=== PATIENT | female | born 2000 | race African-American/Black ===

== ENCOUNTER 2019-05-18 09:20 | Emergency (ER) | payer BC, MEDICAID ==
[2019-05-18 09:42] VITALS: BP 129/68
--- NOTE | 2019-05-18 09:49 | ER Document Report ---
ED Medical Screen (RME) - General Chief Complaint: Vaginal Discharge Stated Complaint: VAGINAL DISCOMFORT Time Seen by Provider: 05/18/19 09:47 Primary Care Provider: DAVID GORDON MD [Primary Care Provider] - Follow up as needed Mode of Arrival: Ambulatory Information source: Patient Notes: 18-year-old female presented to ED for complaint of burning itching to the vagina. She states she has a spot on her left shoulder that she also would like looked at. This is not an abscess it is some type of a mole. She states she is not sexually active and has had yeast infections in the past but this 1 has burning and itching and has a fishy smell to it. She states her last menstrual period was April 23. She denies smoking drinking or doing any drugs. She is a lert oriented respirations regular and unlabored speaking in full sentences walks with even steady gait. I have greeted and performed a rapid initial assessment of this patient. A comprehensive ED assessment and evaluation of the patient, analysis of test results and completion of medical decision making process will be conducted by an additional ED providers. Dictation of this chart was performed using voice recognition software; therefore, there may be some unintended grammatical errors. TRAVEL OUTSIDE OF THE [place] IN LAST 30 DAYS: No - Related Data Allergies/Adverse Reactions: No Known Allergies Allergy (Verified 05/18/19 09:44) Physical Exam - Vital signs Vitals: Temp Pulse Resp BP Pulse Ox 98.6 F 70 16 129/68 H 100 05/18/19 09:41 05/18/19 09:41 05/18/19 09:41 05/18/19 09:41 05/18/19 09:41 Course - Vital Signs Vital signs: Temp Pulse Resp BP Pulse Ox 98.6 F 70 16 129/68 H 100 05/18/19 09:41 05/18/19 09:41 05/18/19 09:41 05/18/19 09:41 05/18/19 09:41 Doctor's Discharge - Discharge Referrals: DAVID GORDON MD [Primary Care Provider] - Follow up as needed
[2019-05-18 10:59] LABS: APPEARANCE,URINE CLEAR; BILIRUBIN,URINE NEGATIVE (NEGATIVE); COLOR,URINE YELLOW; GLUCOSE, URINE NEGATIVE (NEGATIVE); KETONES,URINE NEGATIVE (NEGATIVE); LEUKOCYTE ESTERASE,URINE NEGATIVE (NEGATIVE); NITRITE,URINE NEGATIVE (NEGATIVE); PROTEIN,URINE NEGATIVE (NEGATIVE); URINE SPECIFIC GRAVITY 1.024; UROBILINOGEN,URINE NEGATIVE mg/dL (<2.0)
[2019-05-18 12:28] LABS: CHLAM PCR NOT DETECTED (NOT DETECT)
== END 2019-05-18 17:35 | disposition left against medical advice (07) ==
LOC: ER 09:20
DX: L50.9 Urticaria, unspecified (principal); N89.8 Other specified noninflammatory disorders of vagina; Z53.20 Procedure and treatment not carried out because of patient's decision for unspecified reasons
CPT/HCPCS: 81001; 81025; 87491; 87591; 99281

== ENCOUNTER 2019-05-20 18:46 | Emergency (ER) | payer BC ==
[2019-05-20] MEDS ORDERED: METRONIDAZOLE 500 MG TABLET PO ONE (22:52)
--- NOTE | 2019-05-20 22:54 | ER Document Report ---
HPI - HPI Time Seen by Provider: 05/20/19 22:46 Pain Level: Denies Context: Patient is a 18-year-old female that comes to the emergency department for chief complaint of whitish clumpy vaginal discharge and vaginal irritation. She states she was here for this about a day ago, she states she had a leave for work reasons, she states that her symptoms are persisting and she returns for treatment. She denies abdominal pain, flank pain, dysuria, vaginal bleeding, fever/chills, nausea/vomiting. She denies any other complaints, she denies any daily medications or past medical history. - REPRODUCTIVE Reproductive: DENIES: : Past Medical History - General Information source: Patient - Social History Smoking Status: Never Smoker Frequency of alcohol use: None Drug Abuse: None Lives with: Family Family History: Reviewed & Not Pertinent - Medical History Medical History: Negative Renal/ Medical History: Denies: Hx Peritoneal Dialysis Surgical Hx: Negative - Immunizations Immunizations up to date: Yes Hx Diphtheria, Pertussis, Tetanus Vaccination: Yes Vertical Provider Document - CONSTITUTIONAL General Appearance: WD/WN, No Apparent Distress - INFECTION CONTROL TRAVEL OUTSIDE OF THE [place] IN LAST 30 DAYS: No - HEENT HEENT: Atraumatic, Normal ENT Exam, Normocephalic - NECK Neck: Normal Inspection - RESPIRATORY Respiratory: Breath Sounds Normal, No Respiratory Distress - CARDIOVASCULAR Cardiovascular: Regular Rate, Regular Rhythm - GI/ABDOMEN Gastrointestinal: Abdomen Soft, Abdomen Non-Tender. negative: Abdomen Tender, Abdominal Guarding - BACK Back: Normal Inspection - MUSCULOSKELETAL/EXTREMETIES Musculoskeletal/Extremeties: MAEW, FROM, Non-Tender - NEURO Level of Consciousness: Awake, Alert, Appropriate Motor/Sensory: No Motor Deficit, No Sensory Deficit - DERM Integumentary: Warm, Dry, No Rash Course - Re-evaluation Re-evalutation: Review shows that patient just had a negative urinalysis, negative test, negative gonorrhea and Chlamydia testing. Her reported symptoms are consistent with bacterial vaginosis. I did offer a pelvic exam but this was declined, I feel this is appropriate based on her previously negative work-up, lack of symptoms, benign evaluation. Patient will be treated with Flagyl, discussed expectations, follow-up, and return precautions. Patient states u nderstanding and agreement. - Vital Signs Vital signs: Temp Pulse Resp BP Pulse Ox 98.1 F 117 H 18 149/98 H 95 07/26/19 19:12 05/20/19 19:12 05/20/19 19:12 05/20/19 19:12 05/20/19 19:12 Discharge - Discharge Clinical Impression: Vaginal discharge Condition: Stable Disposition: HOME, SELF-CARE Additional Instructions: Your previous test was negative, your urine was clean, your gonorrhea and Chlamydia testing were negative. Your evaluation is most consistent with bacterial vaginosis, take the Flagyl as prescribed, this should resolve. If this keeps happening please follow-up with [facility], otherwise follow-up routinely with primary care. Return to emergency department for any concerning symptoms including developing pain, fever/chills, nausea/vomiting, or any other concerning symptoms. Prescriptions: Metronidazole [Flagyl 500 mg Tablet] 500 mg PO BID 7 Days #14 tablet
[2019-05-20 22:59] VITALS: BP 143/75
== END 2019-05-20 22:59 | disposition home or self-care (01) ==
LOC: ER 18:46
DX: N89.8 Other specified noninflammatory disorders of vagina (principal)
CPT/HCPCS: 99283

== ENCOUNTER 2019-06-16 17:56 | Emergency (ER) | payer BC ==
--- NOTE | 2019-06-16 18:34 | ER Document Report ---
HPI - HPI Time Seen by Provider: 06/16/19 18:33 Pain Level: 0 Notes: 18-year-old female presents the ED for evaluation of left thumb and left upper thigh pain after she accidentally poured hot water on her prior to arrival to the emergency room. Patient states she was using a canvas that she is for menstrual cramping, filled with hot water and the Was not tight enough and poured onto her thigh and left thumb. Has not tried any qldu-muf-xaabowf medications. Pain is 6 out of 10, throbbing aching. No fevers or chills. No peeling of his skin, no blistering noted. No nausea vomiting or diarrhea, no numbness or tingling bilateral upper or lower extremities. - REPRODUCTIVE Reproductive: DENIES: : Past Medical History - General Information source: Patient, Parent - Social History Smoking Status: Never Smoker Family History: Reviewed & Not Pertinent Renal/ Medical History: Denies: Hx Peritoneal Dialysis - Immunizations Immunizations up to date: Yes Hx Diphtheria, Pertussis, Tetanus Vaccination: Yes Vertical Provider Document - CONSTITUTIONAL Agree With Documented VS: Yes General Appearance: WD/WN Notes: PHYSICAL EXAMINATION: GENERAL: Well-appearing, well-nourished and in no acute distress. HEAD: Atraumatic, normocephalic. EYES: Pupils equal round and reactive to light, extraocular movements intact, conjunctiva are normal. ENT: Nares patent, oropharynx clear without exudates. Moist mucous membranes. NECK: Normal range of motion, supple without lymphadenopathy LUNGS: Breath sounds clear to auscultation bilaterally and equal. No wheezes rales or rhonchi. HEART: Regular rate and rhythm without murmurs ABDOMEN: Soft, nontender, nondistended abdomen. No guarding, no rebound. No masses appreciated. Female : deferred Musculoskeletal: Normal range of motion, no pitting or edema. No cyanosis. NEUROLOGICAL: Cranial nerves grossly intact. Normal speech, normal gait. Normal sensory, motor exams PSYCH: Normal mood, normal affect. SKIN: Warm, Dry, normal turgor, no rashes or lesions noted. Superficial partial-thickness burn to left upper thigh approximately 4 cm x 5 cm, no blistering, open wounds or drainage. Superficial partial-thickness burn to left thumb on dorsal aspect approximately 0.5 cm x 0.5cm, open wounds or drainage, no blistering. - INFECTION CONTROL TRAVEL OUTSIDE OF THE [place] IN LAST 30 DAYS: No Course - Re-evaluation Re-evalutation: 06/16/19 19:53 Vital stable, no distress, afebrile. Nurse's notes reviewed. Patient is tetanus is up-to-date patient has a superficial partial-thickness burn to left thigh left thumb, discussed with patient that she can apply aloe vera, will give patient lidocaine cream to put on. She can apply xvxs-riz-giahotl bacitracin bid prn, no need for Silvadene due to the fact there is no open wound, this is a superficial partial-thickness burn advised to follow-up with primary care provider within the next 24 to 48 hours. After performing a Medical Screening Examination, I estimate there is LOW risk for OPEN FRACTURE, COMPARTMENT SYNDROME, TENDON RUPTURE, ACUTE NEUROVASCULAR INJURY, or RETAINED FOREIGN BODY, thus I consider the discharge disposition reasonable. Also, there is no evidence or peritonitis, sepsis, or toxicity. I have reevaluated this patient multiple times and no significant life threatening changes are noted. The patient and I have discussed the diagnosis and risks, and we agree with discharging home with close follow-up with the understanding that symptoms and presentations can change. We also discussed returning to the Emergency Department immediately if new or worsening symptoms occur. We have discussed the symptoms which are most concerning (e.g., changing or worsening pain, fever, numbness, weakness, cool or painful digits) that necessitate immediate return. - Vital Signs Vital signs: Temp Pulse Resp BP Pulse Ox 97.8 F 75 14 141/69 H 98 06/16/19 18:00 06/16/19 18:00 06/16/19 18:00 06/16/19 18:00 06/16/19 18:00 Discharge - Discharge Clinical Impression: superficial partial thickness burn Condition: Stable Disposition: HOME, SELF-CARE Instructions: [facility] (OM), Soap Cleansing ([facility]) Additional Instructions: Apply lidocaine gel to area every 4 hours as needed for pain control. Wash with soap and water twice a day. Apply triple antibiotic ointment if you notice any redness, drainage or warmth to touch. Follow-up with primary care provider for wound reevaluation within 2 days. Take yutu-kjm-bjnlxow ibuprofen and Tylenol as needed for pain control. Return immediately for any new or worsening symptoms. Follow up with primary care provider, call tomorrow to make followup appointment. Prescriptions: Lidocaine HCl [Lidocaine Plus] 1 applic TP Q4HP PRN #120 cream..g. PRN Reason: Forms: Return to Work, Parent Work Note Referrals: PARMINDER WILSON MD [ACTIVE STAFF] - Follow up as needed
[2019-06-16] MEDS ORDERED: IBUPROFEN 800 MG TABLET PO ONE (19:25)
[2019-06-16 19:48] VITALS: BP 107/62
== END 2019-06-16 19:49 | disposition home or self-care (01) ==
LOC: ER 17:56
DX: T23.112A Burn of first degree of left thumb (nail), initial encounter (principal); T24.112A Burn of first degree of left thigh, initial encounter; X12.XXXA Contact with other hot fluids, initial encounter; Y93.89 Activity, other specified; Y92.009 Unspecified place in unspecified non-institutional (private) residence as the place of occurrence of the external cause

== ENCOUNTER 2019-10-06 15:52 | Emergency (ER) | payer BC ==
--- NOTE | 2019-10-06 16:12 | ER Document Report ---
ED Medical Screen (RME) - General Chief Complaint: Abdominal Pain Stated Complaint: ABDOMINAL PAIN Time Seen by Provider: 10/06/19 16:07 TRAVEL OUTSIDE OF THE [place] IN LAST 30 DAYS: No - HPI Notes: 10/06/19 16:11 Patient is a 19-year-old female no significant past medical history presents complaining of epigastric and right upper quadrant abdominal pain for the past few weeks. The pain does not radiate. Positions will make the pain worse. She has not noticed any changes with p.o. intake. She is urinating normally and having normal bowel movements. Denies drug allergies. No surgical history to her abdomen. No fever or recent illness. No chest pain, shortness of breath, vomiting, diarrhea. No dysuria. I have treated and performed a rapid initial assessment of this patient. A comprehensive ED assessment and evaluation of the patient, analysis of test results and completion of medical decision making process will be conducted by additional ED providers. PHYSICAL EXAMINATION: GENERAL: Well-appearing, well-nourished and in no acute distress. A&Ox4. Answers questions appropriately. Abdomen: Limited exam in triage, but patient does have tenderness to the epigastrium and right upper quadrant to palpation. Abdomen is otherwise soft. - Related Data Allergies/Adverse Reactions: No Known Allergies Allergy (Verified 10/06/19 16:02) Past Medical History - Social History Chew tobacco use (# tins/day): No Frequency of alcohol use: None Drug Abuse: None Renal/ Medical History: Denies: Hx Peritoneal Dialysis - Immunizations Immunizations up to date: Yes Hx Diphtheria, Pertussis, Tetanus Vaccination: Yes Physical Exam - Vital signs Vitals: Temp Pulse Resp BP Pulse Ox 98.1 F 57 L 14 122/65 100 10/06/19 16:02 10/06/19 16:02 10/06/19 16:02 10/06/19 16:02 10/06/19 16:02 Course - Vital Signs Vital signs: Temp Pulse Resp BP Pulse Ox 98.1 F 57 L 14 122/65 100 10/06/19 16:02 10/06/19 16:02 10/06/19 16:02 10/06/19 16:02 10/06/19 16:02
[2019-10-06 16:39] LABS: ABSOLUTE BASOPHILS # (AUTO) 0.1 10^3/uL (0.0-0.2); ABSOLUTE LYMPHOCYTES (AUTO) 2.1 10^3/uL (0.5-4.7); ABSOLUTE MONOCYTES (AUTO) 0.5 10^3/uL (0.1-1.4); ABSOLUTE NEUT (AUTO) 3.9 10^3/uL (1.7-8.2); APPEARANCE,URINE SLIGHTLY-CLOUDY; BILIRUBIN,URINE NEGATIVE (NEGATIVE); COLOR,URINE YELLOW; EOSINOPHILS % (AUTO) 0.4 % (0-6); GLUCOSE, URINE NEGATIVE (NEGATIVE); HEMATOCRIT 44.7 % (36.0-47.0); HEMOGLOBIN 15.1 g/dL (12.0-15.5); KETONES,URINE NEGATIVE (NEGATIVE); LYMPHOCYTES % (AUTO) 31.6 % (13-45); MEAN CORPUSCULAR HEMOGLOBIN 29.9 pg (27.0-33.4); MEAN CORPUSCULAR HGB CONC 33.7 g/dL (32.0-36.0); MEAN CORPUSCULAR VOLUME 89 fl (80-97); PLATELET COUNT 348 10^3/uL (150-450); PROTEIN,URINE NEGATIVE (NEGATIVE); RED BLOOD COUNT 5.03 10^6/uL (3.72-5.28); RED CELL DISTRIBUTION WIDTH 12.7 % (11.5-14.0); TOTAL CELLS COUNTED % (AUTO) 100 %; URINE SPECIFIC GRAVITY 1.014; WHITE BLOOD COUNT 6.6 10^3/uL (4.0-10.5)
[2019-10-06 16:51] LABS: ALBUMIN 4.8 g/dL (3.5-5.0); ALKALINE PHOSPHATASE 68 U/L (38-126); ANION GAP 13 (5-19); ASPARTATE AMINO TRANSFERASE 16 U/L (14-36); BILIRUBIN,DIRECT 0.2 mg/dL (0.0-0.4); BILIRUBIN,TOTAL 0.4 mg/dL (0.2-1.3); BLOOD UREA NITROGEN 12 mg/dL (7-20); CARBON DIOXIDE 28 mmol/L (22-30); CHLORIDE 101 mmol/L (98-107); GLUCOSE 94 mg/dL (75-110); TOTAL PROTEIN 8.2 g/dL (6.3-8.2)
--- NOTE | 2019-10-06 17:23 | RADIOLOGY REPORT (SQ) ---
EXAM DESCRIPTION: U/S ABDOMEN LIMITED W/O DOP COMPLETED DATE/TIME: 10/06/2019 5:14 pm REASON FOR STUDY: RUQ/epigastric pain COMPARISON: None. TECHNIQUE: Dynamic and static grayscale images acquired of the abdomen and recorded on PACS. Additio nal selected color Doppler and spectral images recorded. LIMITATIONS: None. FINDINGS: PANCREAS: Obscured LIVER: No masses. Echotexture normal. LIVER VASCULATURE: Normal directional flow of the main portal vein and hepatic veins. GALLBLADDER: No stones. Normal wall thickness. No pericholecystic fluid. ULTRASOUND-DETECTED LANDRUM'S SIGN: Negative. INTRAHEPATIC DUCTS AND COMMON DUCT: CBD and intrahepatic ducts normal caliber. No filling defects. INFERIOR VENA CAVA: Normal flow. AORTA: No aneurysm. RIGHT KIDNEY: Normal size. Normal echogenicity. No solid or suspicious masses. No hydronephrosis. No calcifications. PERITONEAL AND RIGHT PLEURAL SPACE: No ascites or effusions. OTHER: No other significant findings. IMPRESSION: NORMAL RIGHT UPPER QUADRANT ULTRASOUND. TECHNICAL DOCUMENTATION: JOB ID: [id number] [email or web address]- All Rights Reserved Reading location - IP/workstation name: [email or web address]
[2019-10-06 17:50] VITALS: BP 150/84
--- NOTE | 2019-10-06 17:51 | ER Document Report ---
ED GI/ - General Chief Complaint: Abdominal Pain Stated Complaint: ABDOMINAL PAIN Time Seen by Provider: 10/06/19 16:07 Primary Care Provider: [facility] [Provider Group] - Follow up as needed [facility] [Provider Group] - Follow up as needed [facility] [Provider Group] - Follow up as needed [facility] [Provider Group] - Follow up as needed [facility] [Provider Group] - Follow up as needed [facility] [Provider Group] - Follow up as needed LUCIANA COTE MD [ACTIVE STAFF] - Follow up as needed STEPHEN MERIDA MD [ACTIVE STAFF] - Follow up as needed TRAVEL OUTSIDE OF THE [place] IN LAST 30 DAYS: No - Related Data Allergies/Adverse Reactions: No Known Allergies Allergy (Verified 10/06/19 16:02) Past Medical History - Social History Smoking Status: Never Smoker Chew tobacco use (# tins/day): No Frequency of alcohol use: None Drug Abuse: None Lives with: Family Family History: Reviewed & Not Pertinent Patient has suicidal ideation: No Patient has homicidal ideation: No - Past Medical History Cardiac Medical History: Reports: None Pulmonary Medical History: Reports: None EENT Medical History: Reports: None Neurological Medical History: Reports: None Endocrine Medical History: Reports: None Renal/ Medical History: Reports: None Malignancy Medical History: Reports: None GI Medical History: Reports: None Musculoskeletal Medical History: Reports None Skin Medical History: Reports None Psychiatric Medical History: Reports: None Traumatic Medical History: Reports: None Infectious Medical History: Reports: None Surgical Hx: Negative Past Surgical History: Reports: None - Immunizations Immunizations up to date: Yes Hx Diphtheria, Pertussis, Tetanus Vaccination: Yes Review of Systems - Review of Systems Constitutional: No symptoms reported EENT: No symptoms reported Cardiovascular: No symptoms reported Respiratory: No symptoms reported Gastrointestinal: Abdominal pain. denies: Nausea, Vomiting Genitourinary: No symptoms reported Female Genitourinary: No symptoms reported Musculoskeletal: No symptoms reported Skin: No symptoms reported Hematologic/Lymphatic: No symptoms reported Neurological/Psychological: No symptoms reported Physical Exam - Vital signs Vitals: Temp Pulse Resp BP Pulse Ox 98.1 F 57 L 14 122/65 100 10/06/19 16:02 10/06/19 16:02 10/06/19 16:02 10/06/19 16:02 10/06/19 16:02 Interpretation: Normal - General General appearance: Appears well, Alert - HEENT Head: Normocephalic, Atraumatic Eyes: Normal Pupils: PERRL - Respiratory Respiratory status: No respiratory distress Chest status: Nontender Breath sounds: Normal Chest palpation: Normal - Cardiovascular Rhythm: Regular Heart sounds: Normal auscultation Murmur: No - Abdominal Inspection: Normal Distension: No distension Bowel sounds: Normal Tenderness: Tender - Generalized. No: McBurney's point, Leal's sign, Guarding Organomegaly: No organomegaly - Back Back: Normal, Nontender - Extremities General upper extremity: Normal inspection, Nontender, Normal color, Normal ROM, Normal temperature General lower extremity: Normal inspection, Nontender, Normal color, Normal ROM, Normal temperature, Normal weight bearing. No: Stephania's sign - Neurological Neuro grossly intact: Yes Cognition: Normal Orientation: AAOx4 Madhavi Coma Scale Eye Opening: Spontaneous Cut Off Coma Scale Verbal: Oriented Cut Off Coma Scale Motor: Obeys Commands Cut Off Coma Scale Total: 15 Speech: Normal Motor strength normal: LUE, RUE, LLE, RLE Sensory: Normal - Psychological Associated symptoms: Normal affect, Normal mood - Skin Skin Temperature: Warm Skin Moisture: Dry Skin Color: Normal Course - Re-evaluation Re-evalutation: 10/06/19 17:53 Discussed labs and ultrasound with patient and written report of labs and ultrasound given to patient for discharge. Patient was instructed to follow-up with primary care and or gastroenterology. - Vital Signs Vital signs: Temp Pulse Resp BP Pulse Ox 98.4 F 71 18 150/84 H 100 10/06/19 18:03 10/06/19 18:03 10/06/19 18:03 10/06/19 18:03 10/06/19 18:03 - Laboratory Result Diagrams: 10/06/19 16:13 10/06/19 16:13 Laboratory results interpreted by me: 10/06/19 16:13 Urine Urobilinogen 4.0 H - Diagnostic Test Radiology reviewed: Image reviewed, Reports reviewed Discharge - Discharge Clinical Impression: Abdominal pain Qualifiers: Abdominal location: generalized Qualified Code(s): R10.84 - Generalized abdominal pain Condition: Stable Disposition: HOME, SELF-CARE Additional Instructions: ABDOMINAL PAIN: There are many causes of abdominal pain. Pain can mean a serious problem requiring surgery (such as appendicitis). It can also be an innocent problem that goes away on its own (such as a viral infection). Often, time must pass to determine the cause of pain. The physician does not feel that hospitalization is necessary, at present. Things may change within the next 24 hours. Call the doctor or come back for re- examination if any problems occur, such as: (1) Pain that becomes more severe, steady, or becomes concentrated in one specific area. Also, pain that is more severe with movement or coughing. (2) Vomiting that persists or becomes more frequent. (3) Blood in the vomitus, urine, or bowel movements. Blood in the stool may have a tarry or black appearance. (4) Shaking chills or fever greater than 100 degrees F. (5) The abdomen becomes more distended or swollen. (6) Bowel movements cease. (7) Failure to improve as expected. NORMAL EXAM AND WORKUP: At this time, your examination and workup show no significant abnormality. No significant abnormal physical findings are noted. All laboratory, EKG, and imaging (x-ray, CT scans, ultrasound) studies that were ordered show no significant abnormality. Although your examination and all studies that were ordered showed no significant abnormal finding, there are no examinations and no studies that are 100% accurate. There is always the possibility that some abnormality could exist and not be detected with physical examination or within the limits and capabilities of laboratory and other studies. You should return or follow up as you were instructed on your visit today for further evaluation if your symptoms do not resolve. ANTINAUSEA MEDICATION: You have been given a medication to suppress nausea and vomiting. This type of medication can be given as a shot, pill, or suppository. It will usually last for many hours. Pills and shots usually last six to eight hours, suppositories last about 12 hours. For the typical illness, only one or two doses of the medication may be necessary. Mild lightheadedness may occur. This type of medicine can cause drowsiness. Do not drive or operate dangerous machinery while under its influence. Do not mix with alcohol. See your doctor at once if you have muscle spasms or tightness, or unco ntrollable motions (particularly of the neck, mouth, or jaw). Persistent vomiting or severe lightheadedness should also be evaluated by the physician. Have discussed your labs and ultrasound results with you and have shown you the results on the computer. I will give you a copy this to take to your primary care and a director of recruiting. FOLLOW-UP CARE: If you have been referred to a physician for follow-up care, call the physicians office for an appointment as you were instructed or within the next two days. If you experience worsening or a significant change in your symptoms, notify the physician immediately or return to the Emergency Department at any time for re-evaluation. Referrals: [facility] [Provider Group] - Follow up as needed [facility] [Provider Group] - Follow up as needed [facility] [Provider Group] - Follow up as needed [facility] [Provider Group] - Follow up as needed [facility] [Provider Group] - Follow up as needed [facility] [Provider Group] - Follow up as needed STEPHEN MERIDA MD [ACTIVE STAFF] - Follow up as needed LUCIANA COTE MD [ACTIVE STAFF] - Follow up as needed
== END 2019-10-06 18:03 | disposition home or self-care (01) ==
LOC: ER 15:52
DX: R10.84 Generalized abdominal pain (principal); R10.817 Generalized abdominal tenderness
CPT/HCPCS: 36415; 76705; 80053; 81001; 81025; 83690; 85025; 99284

== ENCOUNTER 2020-06-18 04:12 | Inpatient (IN) | payer MEDICAID ==
[2020-06-18] MEDS ORDERED: RINGERS SOLUTION,LACTATED 1,000 ML IV ONE (04:41)
[2020-06-18] MEDS ORDERED: RINGERS SOLUTION,LACTATED 1,000 ML IV PRN (04:41)
[2020-06-18] MEDS ORDERED: OXYTOCIN 10 UNIT/ML VIAL ONE (05:03)
[2020-06-18] MEDS ORDERED: OXYTOCIN/0.9 % SODIUM CHLORIDE 30 UNIT/500 ML RTUINJ ONE (05:03)
[2020-06-18] MEDS ORDERED: MISOPROSTOL 0.2 MG TABLET ONE (05:03)
[2020-06-18] MEDS ORDERED: LIDOCAINE 1% INJ-PF (10 MG/ML) 30 ML SDV ONE (05:03)
[2020-06-18 05:22] LABS: APPEARANCE,URINE SLIGHTLY-CLOUDY; BILIRUBIN,URINE NEGATIVE (NEGATIVE); COLOR,URINE YELLOW; GLUCOSE, URINE NEGATIVE (NEGATIVE); KETONES,URINE NEGATIVE (NEGATIVE); LEUKOCYTE ESTERASE,URINE MODERATE (NEGATIVE); NITRITE,URINE NEGATIVE (NEGATIVE); PROTEIN,URINE 100 mg/dL (NEGATIVE); URINE SPECIFIC GRAVITY 1.008; UROBILINOGEN,URINE NEGATIVE mg/dL (<2.0)
[2020-06-18 05:49] LABS: URINE AMPHETAMINES SCREEN NEGATIVE; URINE BARBITURATES SCREEN NEGATIVE; URINE BENZODIAZEPINES SCREEN NEGATIVE; URINE COCAINE SCREEN NEGATIVE; URINE MARIJUANA (THC) SCREEN NEGATIVE; URINE METHADONE SCREEN NEGATIVE; URINE PHENCYCLIDINE SCREEN NEGATIVE
[2020-06-18 05:58] LABS: ABSOLUTE LYMPHOCYTES (AUTO) 1.4 10^3/uL (0.5-4.7); ABSOLUTE NEUT (AUTO) 6.9 10^3/uL (1.7-8.2); BASOPHILS % (AUTO) 0.1 % (0-2); EOSINOPHILS % (AUTO) 0.1 % (0-6); HEMATOCRIT 38.2 % (36.0-47.0); HEMOGLOBIN 13.4 g/dL (12.0-15.5); LYMPHOCYTES % (AUTO) 15.1 % (13-45); MEAN CORPUSCULAR HEMOGLOBIN 30.9 pg (27.0-33.4); MEAN CORPUSCULAR HGB CONC 35.1 g/dL (32.0-36.0); MEAN CORPUSCULAR VOLUME 88 fl (80-97); MONOCYTES % (AUTO) 10.3 % (3-13); PLATELET COUNT 245 10^3/uL (150-450); RED BLOOD COUNT 4.34 10^6/uL (3.72-5.28); RED CELL DISTRIBUTION WIDTH 13.5 % (11.5-14.0); SEGMENTED NEUTROPHILS % (AUTO) 74.4 % (42-78); TOTAL CELLS COUNTED % (AUTO) 100 %; WHITE BLOOD COUNT 9.3 10^3/uL (4.0-10.5)
--- NOTE | 2020-06-18 06:37 | Admission Physical ---
Datetime Report Generated by CPN: 06/18/2020 06:37 CURRENT ADMISSION Chief Complaint: Uterine Contractions Indication for Induction: Not Applicable Admit Impression : Term, Intrauterine ; Active Labor Admit Plan: Admit to Unit; Initiate Labor Protocol ALLERGIES Medication Allergies: No Medication Allergies: No Known Allergies (10/06/2019) Latex: No Latex Allergies OBSTETRICAL HISTORY EDC: 07/01/2020 00:00 : 1 Para: 0 Term: 0 : 0 SAB: 0 IAB: 0 Ectopic: 0 Livin Cesareans: 0 VBACs: 0 Multiple Births: 0 Gestational Diabetes: No Rh Sensitization: No Incompetent Cervix: No HOWIE: No Infertility: No ART Treatment: No Uterine Anomaly: No IUGR: No Hx Previous C/S: No Macrosomia: No Hx Loss/Stillborn: No PIH: No Hx : No Placenta Previa/Abruption: No Depression/PP Depression: No PTL/PROM: No Post Hemorrhage: No Current Procedures: Ultrasound Obstetrical History Comments: G1- Current SEE RECORDS Alcohol: No Marijuana : No Cocaine: No Other Illicit Drugs: No Cigarettes: Never Smoker. 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 Heart Disease: No Hosp/Surgery: No Autoimmune Disorder: No Anesthetic Complications: No Kidney Disease: No Abnormal Pap Smear: No Neuro/Epilepsy: No Psychiatric Disorders: No Other Medical Diseases: No Hepatitis/Liver Disease: No Significant Family History: No Varicosities/Phlebitis: No Trauma/Violence : No Thyroid Dysfunction: No INFECTIOUS HISTORY Gonorrhea: No Genital Herpes: No Chlamydia: No Tuberculosis: No Syphilis: No Hepatitis: No HIV/AIDS Exposure: No Rash or Viral Illness: No HPV: No PHYSICAL EXAM General: Normal HEENT: Normal Neurologic: Normal Thyroid: Normal Heart: Normal Lungs: Normal Breast: Normal Back: Normal Abdomen: Normal Genitourinary Exam: Normal Extremities: Normal DTRs: Normal Pelvic Type: Adequate Vital Signs: Reviewed; Within Normal Limits VAGINAL EXAM Dilatation: 7 Effacement: 90 Station: 0 MEMBRANES Pooling: Negative Membranes: Intact FETUS A EGA: 38.1 Monitoring: External US FHR- Baseline: 130 Variability: Moderate 6-25bpm Accelerations: 15X15 Decelerations: None FHR Category: Category I Estimated Weight (gm): 3400 Presentation: Vertex PLANS FOR LABOR AND DELIVERY Labor and Delivery: None Pain Management: None Feeding Preference: Breast Benefit of Breast Feed Discussed: Yes Circumcision: Yes INFORMED CONSENT Signature: with User ID: [email or web address]
--- NOTE | 2020-06-18 11:48 | L&D Progress Notes ---
PROGRESS NOTES Datetime Report Generated by CPN: 06/18/2020 11:48 PROGRESS NOTE Impression: Normal Progression of Labor Procedures: Artificial ROM; Sterile Vag Exam Plan: Continue Present Management; Anticipate Vaginal Delivery Vital Signs : Reviewed; Within Normal Limits Comment: Pt laboring naturally. VE /+1. AROM w/ clear fluid. Position changes encouraged, Anticipate . GBS negative. Attending MD is Dr Garcia VAGINAL EXAM Dilatation: 7 Effacement: 90 Station: 0 LAST VAGINAL EXAM-NURSING Nursing Exam Dilitation: 9.0 Nursing Exam Effacement: 90 Nursing Exam Station: 1 MEMBRANES Pooling: Negative Membranes: Ruptured Amniotic Fluid Color: Clear FETUS A FHR - Baseline: 140 Monitoring: External US Variability: Moderate 6-25bpm Accelerations: 15X15 Decelerations: Variable : 38.1 Estimated Weight (gm): 3400 Presentation: Vertex SIGNATURE SIGNATURE: [id number] Assignment: Monica Garcia MD Signature: with User ID: Ar : with User ID: Ar
--- NOTE | 2020-06-18 14:03 | L&D Progress Notes ---
PROGRESS NOTES Datetime Report Generated by CPN: 06/18/2020 14:03 PROGRESS NOTE Impression: Reassuring Heart Rate Procedures: Sterile Vag Exam Plan: Continue Present Management; Anticipate Vaginal Delivery Plan Other: position changes encouraged Vital Signs : Reviewed; Within Normal Limits Comment: Ve /+1 w/ thick anterior lip. Variable decels w/ contractions, Position changes encouraged. Anticipate . Labor support VAGINAL EXAM Dilatation: 7 Effacement: 90 Station: 0 LAST VAGINAL EXAM-NURSING Nursing Exam Dilitation: 9.0 Nursing Exam Effacement: 90 Nursing Exam Station: 1 MEMBRANES Pooling: Negative Membranes: Ruptured Amniotic Fluid Color: Clear FETUS A FHR - Baseline: 130 Monitoring: External US Variability: Moderate 6-25bpm Accelerations: 15X15 Decelerations: Variable FHR Comments: variable decels w/ contractions : 38.1 Estimated Weight (gm): 3400 Presentation: Vertex SIGNATURE SIGNATURE: [id number];[id number] Assignment: Monica Garcia MD Signature: with User ID: Ar : with User ID: Ar
[2020-06-18] MEDS ORDERED: NALBUPHINE HCL INJ 10 MG/1 ML AMPULE ONE ×2 (14:14→16:46)
--- NOTE | 2020-06-18 14:31 | L&D Progress Notes ---
PROGRESS NOTES Datetime Report Generated by CPN: 06/18/2020 14:30 PROGRESS NOTE Impression: Reassuring Heart Rate Procedures: Intrauterine Pressure Catheter; Scalp Electrode; Epidural Placement Plan: Continue Present Management; Anticipate Vaginal Delivery Plan Other: O2 applied, position changes encouraged Vital Signs : Reviewed; Within Normal Limits Comment: IUPC and FSE applied, O2 on at 10 L/min. VE 9 w/ thicker anterior lip/ 90/+1. EFW 8+2. ?OP, Position changes encouraged, May need to augment w/ Pitocin if IUPC reveals contractions need to be augmented. Dr Garcia aware of slow cervical change VAGINAL EXAM Dilatation: 10 Effacement: 90 Station: 1 Contractions: q2-3 LAST VAGINAL EXAM-NURSING Nursing Exam Dilitation: 9.0 Nursing Exam Effacement: 90 Nursing Exam Station: 1 MEMBRANES Pooling: Negative Membranes: Ruptured Amniotic Fluid Color: Clear FETUS A FHR - Baseline: 125 Monitoring: Internal Scalp Electrode Variability: Moderate 6-25bpm Accelerations: 15X15 Decelerations: Variable FHR Comments: with contractions, spontaneously resolve : 38.1 Estimated Weight (gm): 3400 Presentation: Vertex SIGNATURE SIGNATURE: [id number];[id number] Assignment: Monica Garcia MD Signature: with User ID: Ar : with User ID: Ar
[2020-06-18] MEDS ORDERED: NALBUPHINE HCL INJ 10 MG/1 ML AMPULE INJ ONE (14:45)
[2020-06-18] MEDS ORDERED: OXYTOCIN/0.9 % SODIUM CHLORIDE 30 UNIT/500 ML RTUINJ IV PRN ×2 (14:51→17:24)
--- NOTE | 2020-06-18 15:41 | L&D Progress Notes ---
PROGRESS NOTES Datetime Report Generated by CPN: 06/18/2020 15:41 PROGRESS NOTE Impression: Reassuring Heart Rate Procedures: Intrauterine Pressure Catheter; Scalp Electrode; Epidural Placement Plan: Continue Present Management; Anticipate Vaginal Delivery Plan Other: O2 applied, position changes encouraged Vital Signs : Reviewed; Within Normal Limits Comment: Will start amnioinfusion d/t occassional variable decels. FHR 135 moderate variability. MVU's checked and at 180 mmHg in 10 min, will plan to augment with pitocin. VAGINAL EXAM Dilatation: 10 Effacement: 90 Station: 1 Contractions: q2-3 LAST VAGINAL EXAM-NURSING Nursing Exam Dilitation: 9.0 Nursing Exam Effacement: 90 Nursing Exam Station: 1 Nursing Exam Contractions: MVUs 175 MEMBRANES Pooling: Negative Membranes: Ruptured Amniotic Fluid Color: Clear FETUS A FHR - Baseline: 125 Monitoring: Internal Scalp Electrode Variability: Moderate 6-25bpm Accelerations: 15X15 Decelerations: Variable FHR Comments: with contractions, spontaneously resolve : 38.1 Estimated Weight (gm): 3400 Presentation: Vertex SIGNATURE SIGNATURE: [id number];[id number] Assignment: Monica Garcia MD Signature: with User ID: Ar : with User ID: Ar
[2020-06-18] MEDS ORDERED: DIPH/PERTUSS(ACELL)/TETANUS VAC/PF 0.5 ML SYR (>=10YO) IM PRN (17:24)
[2020-06-18] MEDS ORDERED: ZOLPIDEM TARTRATE 5 MG TABLET PO PRN (17:24)
[2020-06-18] MEDS ORDERED: MAGNESIUM HYDROXIDE SUSP 30 ML UDCUP PO PRN (17:24)
[2020-06-18] MEDS ORDERED: PROMETHAZINE HCL 25 MG SUPP.RECT PR PRN (17:24)
[2020-06-18] MEDS ORDERED: MEASLES,MUMPS&RUBELLA VACC/PF 0.5 ML VIAL SUBCUT PRN (17:24)
[2020-06-18] MEDS ORDERED: NA PHOS,M-B/NA PHOS,DI-BA (ADULT) 133 ML ENEMA PR PRN (17:24)
[2020-06-18] MEDS ORDERED: BENZOCAINE/MENTHOL AEROSOL SPRAY 56 ML TOP PRN (17:24)
[2020-06-18] MEDS ORDERED: PSEUDOEPHEDRINE HCL 30 MG TABLET PO PRN (17:24)
[2020-06-18] MEDS ORDERED: GLYCERIN/WITCH HAZEL LEAF 1 EACH MED..WIPE TP PRN (17:24)
[2020-06-18] MEDS ORDERED: ACETAMINOPHEN 650 MG SUPP.RECT PR PRN (17:24)
[2020-06-18] MEDS ORDERED: PROMETHAZINE HCL INJ 25 MG/1 ML VIAL IV PRN (17:24)
[2020-06-18] MEDS ORDERED: DIBUCAINE 1% OINTMENT 28 GM TP PRN (17:24)
[2020-06-18] MEDS ORDERED: PROMETHAZINE HCL 25 MG TABLET PO PRN (17:24)
[2020-06-18] MEDS ORDERED: DIPHENHYDRAMINE HCL 25 MG CAPSULE PO PRN (17:24)
[2020-06-18] MEDS ORDERED: NITROFURANTOIN MONOHYD/M-CRYST 100 MG CAPSULE PO ONE ×2 (17:49→21:15)
[2020-06-18] MEDS ORDERED: DOCUSATE SODIUM 100 MG CAPSULE ONE (17:51)
[2020-06-18] MEDS ORDERED: FERROUS SULFATE 325 MG TABLET PO ONE (17:51)
[2020-06-18] MEDS ORDERED: IBUPROFEN 800 MG TABLET ONE (17:51)
[2020-06-18] MEDS: DOCUSATE SODIUM 100 MG CAPSULE PO SCH (17:55)
[2020-06-18] MEDS: FERROUS SULFATE 325 MG TABLET PO SCH (17:55)
[2020-06-18] MEDS: IBUPROFEN 800 MG TABLET PO SCH (17:55)
--- NOTE | 2020-06-18 18:56 | Birth Certificate Data ---
Cert Data Datetime Report Generated by CPChivo: 06/18/2020 18:55 CERTIFICATE DATA 47a. Care: Yes (06/18/2020 04:31:Mary Franco RN) 47b. Date of First Visit: 01/06/2020 00:00 (06/18/2020 04:31:Mary Franco RN) 47c. Date of Last Visit: 06/11/2020 00:00 (06/18/2020 04:31:Mary Franco RN) 47d. Number of Visits: 10 (06/18/2020 04:31:Mary Franco RN) 48a. Number of Prev Live Births: 0 (06/18/2020 04:31:Mary Franco RN) 48b. Now Livin (06/18/2020 04:31:Mary Franco RN) 48c. Live Births Now : 0 (06/18/2020 04:31:QS system process) 48e. Losses: 0 (06/18/2020 04:31:Mary Franco RN) RISK FACTORS IN THIS 49a. Diabetes: No (06/18/2020 04:31:aMry Franco RN) 49b. Hypertension: No (06/18/2020 04:31:Mary Franco RN) 49c. Previous Births: 0 (06/18/2020 04:31:Mary Franco RN) 49d. Stillborns: No (06/18/2020 04:31:Mary Franco RN) 49d. IUGR: No (06/18/2020 04:31:Mary Franco RN) 49e. Infertility Treatment: No (06/18/2020 04:31:Mary Franco RN) 49f. Previous Cesareans: 0 (06/18/2020 04:31:Mary Franco RN) Mother's Height 50b. Height Inches: 69 (06/18/2020 04:25:QS system process) Mother's Weight 51a. Pre- Weight (lbs): 200 (06/18/2020 04:31:Mary Franco RN) 51b. Weight at Delivery (lbs): 293 (06/18/2020 04:25:QS system process) Infections Present/Treated 53a. Gonorrhea: No (06/18/2020 04:31:Mary Franco RN) Results this Hospital Visit : Negative (06/18/2020 04:31:Mary Franco RN) 53b. Syphilis: No (06/18/2020 04:31:Mary Franco RN) Results this Hospital Visit: NONREACTIVE (06/18/2020 05:33:QS system process) 53c. Chlamydia: No (06/18/2020 04:31:Mary Franco RN) Results this Hospital Visit: Negative (06/18/2020 04:31:Mary Franco RN) 53d. Hepatitis B: No (06/18/2020 04:31:Mary Franco RN) Results this Hospital Visit: Negative (06/18/2020 04:31:Mary Franco RN) 53e. Hepatitis C: Negative (06/18/2020 04:31:Mary Franco RN) 53h. Mother Tested for HBsAG: Yes (06/18/2020 04:31:Mary Franco RN) 53i. Date Tested: 01/11/2020 00:00 (06/18/2020 04:31:Mary Franco RN) 53j. Test Result: Negative (06/18/2020 04:31:Mary Franco RN) Obstetric Procedures 54a, b, c. Obstetric Procedures: Ultrasound (06/18/2020 04:31:Mary Franco RN) Cigarette Smoking 55a. 3 Months Before Preg - Ci (06/18/2020 04:31:Mary Franco RN) 55a. Packs: 0 (06/18/2020 04:31:Mary Franco RN) 55b. 1st Trimester of Preg- Ci (06/18/2020 04:31:Mary Franco RN) 55b. Packs: 0 (06/18/2020 04:31:Mary Franco RN) 55c. 2nd Trimester of Preg- Ci (06/18/2020 04:31:Mary Franco RN) 55c. Packs: 0 (06/18/2020 04:31:Mary Franco RN) 55d. 3rd Trimester of Preg- Ci (06/18/2020 04:31:Mary Franco RN) 55d. Packs: 0 (06/18/2020 04:31:Mary Franco RN) Onset of Labor 56a. PROM >12 Hrs: 4.85 (06/18/2020 04:31:QS system process) 56b. Precipitous Labor <3 Hrs: 17 (06/18/2020 04:31:QS system process) 56c. Prolonged Labor > 20 Hrs: 17 (06/18/2020 04:31:QS system process) 57a. Induction of Labor: N/A (06/18/2020 04:31:Dina Keith RN) 57c. Non-Vertex Presentation A: Vertex (06/18/2020 04:31:Dina Keith RN) 57d. Steroids - Lung Mat: None (06/18/2020 04:31:Mary Franco RN) 57d. Steroids - Lung Mat: Not Applicable (06/18/2020 04:31:Mary Franco RN) 57g. Moderate/Heavy Meconium: Clear (06/18/2020 11:44:Dina Keith RN) 57h. Intolerance of Labor: N/A (06/18/2020 04:31:Dina Keith RN) : N/A (06/18/2020 04:31:Dina Keith RN) 57i. Epidural/Spinal Anesthesia: None (06/18/2020 04:31:Dina Keith RN) Method of Delivery 58a. Forceps - Unsuccessful A: N/A (06/18/2020 04:31:Dina Keith RN) 58b. Vacuum - Unsuccessful A: N/A (06/18/2020 04:31:Dina Keith RN) 58c. Presentation at 58c. Presentation at - A : Vertex (06/18/2020 04:31:Dina Keith RN) 58c. Presentation at - A : N/A (06/18/2020 04:31:Dina Keith RN) 58c. Presentation at - A : Cephalic (06/18/2020 13:02:Dina Keith RN) Final Route and Method of Del 58d. Baby A Route/Delivery: Vaginal (06/18/2020 16:35:Dina Keith RN) 58e. Trial of Labor Attempted: No (06/18/2020 04:31:Dina Keith RN) 58e. Trial of Labor Attempted A: N/A (06/18/2020 04:31:Dina Keith RN) 58e. Trial of Labor Attempted B: N/A (06/18/2020 04:31:Dina Keith RN) Maternal Morbidity 59b. 3rd or 4th Degree Lacs: Second Degree (06/18/2020 04:31:Dina Keith RN) 59b. 3rd or 4th Degree Lacs: left labial (06/18/2020 04:31:Dina Keith RN) Birthweight Baby A: 3462 (06/18/2020 04:31:Oriana Madrid RN) 60a. Pounds : 7 (06/18/2020 04:31:QS system process) 60b. Ounces: 10 (06/18/2020 04:31:QS system process) 61. GA at Delivery Baby A: 38.1 (06/18/2020 04:31:Dina Keith RN) : Early Term- 37- 38.6 Weeks (06/18/2020 04:31:QS system process) 62a. 5 Minute Baby A: 9 (06/18/2020 04:31:QS system process)
--- NOTE | 2020-06-18 18:56 | Delivery Summary ---
Del Sum A-C Datetime Report Generated by CPN: 06/18/2020 18:55 DELIVERY PERSONNEL DELIVERY PERSONNEL: [id number] Delivery Doctor:: Pilar Khan CNM Nurse Final Operations Technician Certified:: Pilar Khan CNM Labor and Delivery Nurse:: Dina Keith RN Nursery Nurse:: Marge Medina RN Nursery Nurse:: Fior Steward RN MATERNAL INFORMATION Delivery Anesthesia: None Medications After Delivery: Pitocin 30 Units in 500ml NS/D5W Meds After Delivery Comment: 200mLs open bolus then remainder at 95mLs/hr Maternal Complications: None Provider Comments: Anterior lip reduced, pt up in stirrups, Good strong maternal pushing effort made. of VMI w/body cord noted. FSE removed by RN, baby boy vigorous and crying, placed on pts abdoman. Cord clamped and cut. Cord blood obtained. Placenta S/C/I with IV Pitocin infusing. Left labial laceration very vascular and repaired first. Second degree then repaired. Pt tolerated well. FF w/ decreased lochia. QBL 600 ml but r/t oozing of the lacerations. Apgars 8,9. Mother and baby left in stable condition, She plans to breastfeed. Attending MD is Dr Garcia LABOR SUMMARY EDC: 07/01/2020 00:00 No. Babies in Womb: 1 Attempted: No Labor Anesthesia: None LABOR INFORMATION Reason for Induction: Not Applicable Onset of Labor: 06/17/2020 23:00 Complete Dilatation: 06/18/2020 16:22 Oxytocin: N/A Group B Beta Strep: Negative Antibiotics # of Doses: n/a Steroids Given: None Reason Steroids Not Administered: Not Applicable MEMBRANES Membranes Rupture Method: Artificial Rupture of Membranes: 06/18/2020 11:44 Length of Rupture (hr): 4.85 Amniotic Fluid Color: Clear Amniotic Fluid Amount: Moderate Amniotic Fluid Odor: Normal STAGES OF LABOR Stage 1 hr: 17 Stage 1 min: 22 Stage 2 hr: 0 Stage 2 min: 13 Stage 3 hr: 0 Stage 3 min: 5 Total Time in Labor hr: 17 Total Time in Labor min: 40 VAGINAL DELIVERY Episiotomy: None Other Laceration: left labial Laceration Repair: Yes Laceration Repair Note: left labial laceration repaired as well as 2nd degree laceration. Numbed with 1% lidocaine. 3.0 Vicryl needle used for repair. In and out cath done during repair, patent with clear marielos urine approx 100 ml drained. Also, rectal sphincter intake on digital exam. Sponge Count Correct: N/A CSECTION DELIVERY Primary Indication: N/A Secondary Indication: N/A CSection Incidence: N/A Labor: N/A Elective: N/A CSection Incision: N/A BABY A INFORMATION Infant Delivery Date/Time: 06/18/2020 16:35 Method of Delivery: Vaginal Nurse Controlled Delivery: No Born in Route : No : N/A Forceps: N/A Vacuum Extraction: N/A Shoulder Dystocia : No PRESENTATION/POSITION BABY A Presentation: Cephalic Cephalic Presentation: Vertex Vertex Position: Right Occipital Anterior Breech Presentation: N/A PLACENTA INFORMATION BABY A Placenta Delivery Time : 06/18/2020 16:40 Placenta Method of Delivery: Spontaneous Placenta Status: Delivered SCORES BABY A Heart Rate 1 min: >100 bpm Resp Effort 1 min: Good Cry Reflex Irritability 1 min: Cough or Sneeze or Pulls Away Muscle Tone 1 min: Active Motion Color 1 min: Blue/Pale Resuscitation Effort 1 min: Tactile Stimulation SCORE 1 MIN: 8 Heart Rate 5 min: >100 bpm Resp Effort 5 min: Good Cry Reflex Irritability 5 min: Cough or Sneeze or Pulls Away Muscle Tone 5 min: Active Motion Color 5 min: Body [place], Extremities Blue Resuscitation Effort 5 min: N/A SCORE 5 MIN: 9 INFORMATION BABY A Gestational Age at Delivery: 38.1 Gestational Status: Early Term- 37- 38.6 Weeks Infant Outcome : Liveborn Infant Condition : Stable Infant Sex: Male IDENTIFICATION BABY A Infant Verification Date/Time: 06/18/2020 17:57 ID Band Number: [id number] Mother's Name Verified: Yes RN Verifying Infant: [place] Additional Verifying Personnel: Trell Madrid RN WEIGHT/LENGTH BABY A Infant Birthweight (gm): 3462 Weight (lb): 7 Infant Weight (oz): 10 Length (in): 21.00 Infant Length (cm): 53.34 CORD INFORMATION BABY A No. Cord Vessels: 3 Nuchal Cord : Around Neck x1, Loose Cord Blood Taken: Yes-For Storage (Mom's Blood type +) Infant Suction: None ASSESSMENT BABY A Complications: None Physical Findings at Delivery: Within Normal Limits; Molding of the Head Infant Respirations: Appears Normal Skin to Skin: Yes Braiding Machine Tender/ALS Called : No Infant Care By: Wen Medina RN/KAY Coker Transferred To: Nursery BABY B INFORMATION : N/A
[2020-06-18] MEDS: FAMOTIDINE 20 MG TABLET PO SCH (21:34)
[2020-06-19] MEDS: IBUPROFEN 800 MG TABLET PO SCH ×3 (02:31→17:47)
[2020-06-19] MEDS: ACETAMINOPHEN WITH CODEINE #3 TABLET PO PRN ×2 (04:41→17:50)
[2020-06-19 07:15] LABS: MEAN CORPUSCULAR HEMOGLOBIN 30.9 pg (27.0-33.4); MEAN CORPUSCULAR VOLUME 88 fl (80-97); PLATELET COUNT 184 10^3/uL (150-450); RED BLOOD COUNT 2.96 10^6/uL (3.72-5.28); RED CELL DISTRIBUTION WIDTH 13.3 % (11.5-14.0); WHITE BLOOD COUNT 12.5 10^3/uL (4.0-10.5)
[2020-06-19 07:22] LABS: HEMOGLOBIN 9.1 g/dL (12.0-15.5)
[2020-06-19 07:29] LABS: ALBUMIN 2.5 g/dL (3.5-5.0); ALKALINE PHOSPHATASE 138 U/L (38-126); ANION GAP 5 (5-19); ASPARTATE AMINO TRANSFERASE 28 U/L (14-36); BILIRUBIN,DIRECT 0.2 mg/dL (0.0-0.4); BILIRUBIN,TOTAL 0.6 mg/dL (0.2-1.3); BLOOD UREA NITROGEN 8 mg/dL (7-20); CALCIUM 8.2 mg/dL (8.4-10.2); CARBON DIOXIDE 22 mmol/L (22-30); CHLORIDE 109 mmol/L (98-107); GLUCOSE 80 mg/dL (75-110); POTASSIUM 3.8 mmol/L (3.6-5.0); TOTAL PROTEIN 4.9 g/dL (6.3-8.2)
[2020-06-19] MEDS: FERROUS SULFATE 325 MG TABLET PO SCH ×2 (09:41→17:47)
[2020-06-19] MEDS: PRENATAL VITAMIN W DHA CAPSULE PO SCH (09:41)
[2020-06-19] MEDS: DOCUSATE SODIUM 100 MG CAPSULE PO SCH ×2 (09:41→17:47)
[2020-06-19] MEDS: FAMOTIDINE 20 MG TABLET PO SCH ×2 (09:41→22:02)
[2020-06-19] MEDS: SENNOSIDES/DOCUSATE 8.6-50 MG 1 EACH TABLET PO SCH (09:41)
--- NOTE | 2020-06-19 14:51 | PDOC PROGRESS REPORT ---
Subjective-OB Progress Note for:: 06/19/20 Subjective: reports bleeding slowing, pain controlled with current meds. denies needs Physical Exam (OB) Vital Signs: Temp Pulse Resp BP Pulse Ox 97.4 F 84 16 145/72 H 100 06/19/20 08:56 06/19/20 07:39 06/19/20 07:39 06/19/20 07:39 06/19/20 07:39 Intake & Output 06/18/20 06/19/20 06/20/20 06:59 06:59 06:59 Output Total 350 Balance -350 Weight 133 kg - Maternal Morbidity 59. Maternal Morbidity (serious complications experinced by the mother associated with labor and delivery: None of the above - Abdomen Description: Soft, Round Hernia Present: No Fundal Description: Firm, Midline Fundal Height: u/u - u/2 - Abdominal Distension: No distension Tenderness: Nontender - Extremities Lower extremities: Stephania's sign - neg Calf: Normal, Nontender Objective-Diagnostic Laboratory: 06/19/20 06:54 06/19/20 06:54 06/19/20 06/19/20 06:54 06:54 WBC 12.5 H RBC 2.96 L Hgb 9.1 L D Hct 26.0 L MCV 88 MCH 30.9 MCHC 35.0 RDW 13.3 Plt Count 184 Sodium 135.8 L Potassium 3.8 Chloride 109 H Carbon Dioxide 22 Anion Gap 5 BUN 8 Creatinine 0.87 Est GFR ( Amer) > 60 Glucose 80 Calcium 8.2 L Total Bilirubin 0.6 AST 28 Alkaline Phosphatase 138 H Total Protein 4.9 L Albumin 2.5 L Assessment and Plan(PN) - Time Spent with Patient Time with patient: Less than 15 minutes Medications reviewed and adjusted accordingly: Yes - Disposition Anticipated Discharge Disposition: Home, Self Care Anticipated Discharge Timeframe: within 24 hours
[2020-06-19] MEDS ORDERED: FUROSEMIDE 20 MG TABLET PO ONE (20:17)
[2020-06-19] MEDS: LABETALOL HCL 200 MG TABLET PO SCH (21:59)
[2020-06-20] MEDS: IBUPROFEN 800 MG TABLET PO SCH ×2 (01:48→10:02)
[2020-06-20] MEDS: ACETAMINOPHEN WITH CODEINE #3 TABLET PO PRN ×2 (01:53→10:03)
[2020-06-20] MEDS ORDERED: SODIUM CHLORIDE NASAL SPRAY 44 ML NASL PRN (09:30)
[2020-06-20] MEDS: DOCUSATE SODIUM 100 MG CAPSULE PO SCH (10:02)
[2020-06-20] MEDS: PRENATAL VITAMIN W DHA CAPSULE PO SCH (10:02)
[2020-06-20] MEDS: SENNOSIDES/DOCUSATE 8.6-50 MG 1 EACH TABLET PO SCH (10:02)
[2020-06-20] MEDS: FAMOTIDINE 20 MG TABLET PO SCH (10:02)
[2020-06-20] MEDS: FERROUS SULFATE 325 MG TABLET PO SCH (10:02)
[2020-06-20] MEDS: LABETALOL HCL 200 MG TABLET PO SCH (10:03)
[2020-06-20] MEDS ORDERED: IRON SUCROSE COMPLEX INJ/PF 100 MG/5 ML SDV IV ONE (11:59)
--- NOTE | 2020-06-20 12:01 | PDOC DISCHARGE SUMMARY ---
Impression - Admit/DC Date/PCP Admission Date/Primary Care Provider: 06/18/20 04:44 MARYLU STODDARD MD Discharge Date: 06/20/20 - Discharge Diagnosis (1) Anemia due to acute blood loss Is this a current diagnosis for this admission?: Yes (2) (normal spontaneous vaginal delivery) Is this a current diagnosis for this admission?: Yes (3) Obstetric labial laceration, delivered, current hospitalization Is this a current diagnosis for this admission?: Yes (5) Second degree perineal laceration Is this a current diagnosis for this admission?: Yes - Assessment Summary: 19yo G1 now 1 s/p ppd2 stable and ready for discharge understands warning s/s and when to rtc/[facility]. Continue labetalol, has scheduled BP check at office on thursday rtc earlier prn - Additional Information Resuscitation Status: Full Code Discharge Diet: As Tolerated, Regular Discharge Activity: Activity As Tolerated, Balance Activity w/Rest, No Lifting Over 10 Pounds, Pelvic Rest, No tub bath Referrals: VIET EASTON MD [ACTIVE STAFF] - 06/22/20 2:30 pm (CALL THE OFFICE FOR ANY QUESTIONS OR CONCERNS) Prescriptions: Acetaminophen [Tylenol 325 mg Tablet] 650 mg PO Q4HP PRN #20 tablet PRN Reason: Abdominal Cramping Ibuprofen [Motrin 800 mg Tablet] 800 mg PO Q8HP PRN #20 tablet PRN Reason: Abdominal Cramping Docusate Sodium [Colace 100 mg Capsule] 100 mg PO BID #60 capsule Ferrous Sulfate [Feosol 325 mg Tablet] 325 mg PO BID #60 tablet Labetalol HCl [Normodyne 200 mg Tablet] 100 mg PO Q12 #60 tablet Home Medications: [id number]/Iron Fum/Folic/Docusate [ 19 Tablet] 1 tab PO DAILY 06/18/20 Acetaminophen [Tylenol 325 mg Tablet] 650 mg PO Q4HP PRN #20 tablet 06/20/20 Docusate Sodium [Colace 100 mg Capsule] 100 mg PO BID #60 capsule 06/20/20 Ferrous Sulfate [Feosol 325 mg Tablet] 325 mg PO BID #60 tablet 06/20/20 Ibuprofen [Motrin 800 mg Tablet] 800 mg PO Q8HP PRN #20 tablet 06/20/20 Labetalol HCl [Normodyne 200 mg Tablet] 100 mg PO Q12 #60 tablet 06/20/20 Hospital Course 59. Maternal Morbidity (serious complications experinced by the mother associated with labor and delivery: None of the above Results Laboratory Results: WBC 12.5 10^3/uL (4.0-10.5) H 06/19/20 06:54 RBC 2.96 10^6/uL (3.72-5.28) L 06/19/20 06:54 Hgb 9.1 g/dL (12.0-15.5) L D 06/19/20 06:54 Hct 26.0 % (36.0-47.0) L 06/19/20 06:54 MCV 88 fl (80-97) 06/19/20 06:54 MCH 30.9 pg (27.0-33.4) 06/19/20 06:54 MCHC 35.0 g/dL (32.0-36.0) 06/19/20 06:54 RDW 13.3 % (11.5-14.0) 06/19/20 06:54 Plt Count 184 10^3/uL (150-450) 06/19/20 06:54 Lymph % (Auto) 15.1 % (13-45) 06/18/20 05:33 [place] % (Auto) 10.3 % (3-13) 06/18/20 05:33 Eos % (Auto) 0.1 % (0-6) 06/18/20 05:33 Baso % (Auto) 0.1 % (0-2) 06/18/20 05:33 Absolute Neuts (auto) 6.9 10^3/uL (1.7-8.2) 06/18/20 05:33 Absolute Lymphs (auto) 1.4 10^3/uL (0.5-4.7) 06/18/20 05:33 Absolute Monos (auto) 1.0 10^3/uL (0.1-1.4) 06/18/20 05:33 Absolute Eos (auto) 0.0 10^3/uL (0.0-0.6) 06/18/20 05:33 Absolute Basos (auto) 0.0 10^3/uL (0.0-0.2) 06/18/20 05:33 Seg Neutrophils % 74.4 % (42-78) 06/18/20 05:33 Sodium 135.8 mmol/L (137-145) L 06/19/20 06:54 Potassium 3.8 mmol/L (3.6-5.0) 06/19/20 06:54 Chloride 109 mmol/L (98-107) H 06/19/20 06:54 Carbon Dioxide 22 mmol/L (22-30) 06/19/20 06:54 Anion Gap 5 (5-19) 06/19/20 06:54 BUN 8 mg/dL (7-20) 06/19/20 06:54 Creatinine 0.87 mg/dL (0.52-1.25) 06/19/20 06:54 Est GFR ( Amer) > 60 (>60) 06/19/20 06:54 Est GFR (MDRD) Non-Af > 60 (>60) 06/19/20 06:54 Glucose 80 mg/dL (75-110) 06/19/20 06:54 Calcium 8.2 mg/dL (8.4-10.2) L 06/19/20 06:54 Total Bilirubin 0.6 mg/dL (0.2-1.3) 06/19/20 06:54 Direct Bilirubin 0.2 mg/dL (0.0-0.4) 06/19/20 06:54 Neonat Total Bilirubin Not Reportable 06/19/20 06:54 Neonat Direct Bilirubin Not Reportable 06/19/20 06:54 Neonat Indirect Bili Not Reportable 06/19/20 06:54 AST 28 U/L (14-36) 06/19/20 06:54 ALT 18 U/L (<35) 06/19/20 06:54 Alkaline Phosphatase 138 U/L (38-126) H 06/19/20 06:54 Total Protein 4.9 g/dL (6.3-8.2) L 06/19/20 06:54 Albumin 2.5 g/dL (3.5-5.0) L 06/19/20 06:54 Urine Color YELLOW 06/18/20 04:32 Urine Appearance SLIGHTLY-CLOUDY 06/18/20 04:32 Urine pH 6.0 (5.0-9.0) 06/18/20 04:32 Ur Specific [place] 1.008 06/18/20 04:32 Urine Protein 100 mg/dL (NEGATIVE) H 06/18/20 04:32 Urine Glucose (UA) NEGATIVE mg/dL (NEGATIVE) 06/18/20 04:32 Urine Ketones NEGATIVE mg/dL (NEGATIVE) 06/18/20 04:32 Urine Blood LARGE (NEGATIVE) H 06/18/20 04:32 Urine Nitrite NEGATIVE (NEGATIVE) 06/18/20 04:32 Urine Bilirubin NEGATIVE (NEGATIVE) 06/18/20 04:32 Urine Urobilinogen NEGATIVE mg/dL (<2.0) 06/18/20 04:32 Ur Leukocyte Esterase MODERATE (NEGATIVE) H 06/18/20 04:32 Urine Ascorbic Acid NEGATIVE (NEGATIVE) 06/18/20 04:32 Urine Opiates Screen NEGATIVE 06/18/20 04:32 Urine Methadone Screen NEGATIVE 06/18/20 04:32 Ur Barbiturates Screen NEGATIVE 06/18/20 04:32 Ur Phencyclidine Scrn NEGATIVE 06/18/20 04:32 Ur Amphetamines Screen NEGATIVE 06/18/20 04:32 U Benzodiazepines Scrn NEGATIVE 06/18/20 04:32 Urine Cocaine Screen NEGATIVE 06/18/20 04:32 U Marijuana (THC) Screen NEGATIVE 06/18/20 04:32 RPR NONREACTIVE (NONREACTIVE) 06/18/20 05:33 Blood Type O POSITIVE 06/18/20 05:33 Antibody Screen NEGATIVE 06/18/20 05:33
[2020-06-20 13:05] VITALS: BP 160/80
== END 2020-06-20 14:07 | disposition home or self-care (01) | DRG 989 ==
LOC: LC 04:12 → LR 04:44 → 2S 18:50
PROVIDERS: ADMIT Obstetrics & Gynecology; ATTEND Obstetrics & Gynecology
PROC: 0KQM0ZZ Repair Perineum Muscle, Open Approach (ICD-10-PCS; principal; 2020-06-18)
PROC: 10E0XZZ Delivery of Products of Conception, External Approach (ICD-10-PCS; 2020-06-18)
PROC: 10H073Z Insertion of Monitoring Electrode into Products of Conception, Via Natural or Artificial Opening (ICD-10-PCS; 2020-06-18)
PROC: 10907ZC Drainage of Amniotic Fluid, Therapeutic from Products of Conception, Via Natural or Artificial Opening (ICD-10-PCS; 2020-06-18)
DX: D62 Acute posthemorrhagic anemia (principal); O90.81 Anemia of the puerperium; O70.1 Second degree perineal laceration during delivery; Z11.59 Encounter for screening for other viral diseases; Z3A.38 38 weeks gestation of pregnancy; Z37.0 Single live birth
CPT/HCPCS: 36415; 80053; 80307; 81005; 85025; 85027; 86592; 86850; 86900; 86901; 87086; 94760; J1756; J2300; J2590; J3490; J8499

== ENCOUNTER 2020-06-22 09:55 | Inpatient (IN) | payer MEDICAID ==
--- NOTE | 2020-06-22 10:48 | ER Document Report ---
ED Medical Screen (RME) - General Stated Complaint: BILATERAL LEG SWELLING Time Seen by Provider: 06/22/20 10:41 Primary Care Provider: MARYLU STODDARD MD [Primary Care Provider] - Follow up as needed Mode of Arrival: Wheelchair Information source: Patient Notes: Patient presents 4 days after a vaginal delivery. Patient states that there were no complications with the delivery although she was placed on hypertensive medication. Patient states that she has not taken the blood pressure medication today. Patient is hypertensive in triage. Patient denies any headache pain. Any nausea or vomiting. Patient does complain of vaginal discomfort. Patient also complains of bilateral lower extremity swelling that is so extensive that she states is causing her to have difficulty ambulating. I have greeted and performed a rapid initial assessment of this patient. A comprehensive ED assessment and evaluation of the patient, analysis of test results and completion of the medical decision making process will be conducted by additional ED providers. TRAVEL OUTSIDE OF THE [place] IN LAST 30 DAYS: No - Related Data Allergies/Adverse Reactions: No Known Allergies Allergy (Verified 10/06/19 16:02) Past Medical History Renal/ Medical History: Denies: Hx Peritoneal Dialysis Psychiatric Medical History: Denies: Hx Depression - Immunizations Immunizations up to date: Yes Hx Diphtheria, Pertussis, Tetanus Vaccination: Yes Physical Exam - Vital signs Vitals: Temp Pulse Resp BP Pulse Ox 98.7 F 88 18 161/104 H 99 06/22/20 10:00 06/22/20 10:06/22/20 10:00 06/22/20 10:00 06/22/20 10:00 - General General appearance: Alert Notes: 3+ peripheral lower extremity edema Course - Vital Signs Vital signs: Temp Pulse Resp BP Pulse Ox 98.7 F 88 18 161/104 H 99 06/22/20 10:00 06/22/20 10:00 06/22/20 10:00 06/22/20 10:00 06/22/20 10:00 Doctor's Discharge - Discharge Referrals: MARYLU STODDARD MD [Primary Care Provider] - Follow up as needed
[2020-06-22 11:31] LABS: ABSOLUTE EOSINOPHILS # (AUTO) 0.2 10^3/uL (0.0-0.6); ABSOLUTE MONOCYTES (AUTO) 0.7 10^3/uL (0.1-1.4); ABSOLUTE NEUT (AUTO) 7.2 10^3/uL (1.7-8.2); BASOPHILS % (AUTO) 0.2 % (0-2); EOSINOPHILS % (AUTO) 1.8 % (0-6); HEMATOCRIT 29.9 % (36.0-47.0); HEMOGLOBIN 10.4 g/dL (12.0-15.5); LYMPHOCYTES % (AUTO) 10.5 % (13-45); MEAN CORPUSCULAR HEMOGLOBIN 31.1 pg (27.0-33.4); MEAN CORPUSCULAR HGB CONC 34.9 g/dL (32.0-36.0); MEAN CORPUSCULAR VOLUME 89 fl (80-97); MONOCYTES % (AUTO) 7.9 % (3-13); PLATELET COUNT 291 10^3/uL (150-450); RED BLOOD COUNT 3.36 10^6/uL (3.72-5.28); RED CELL DISTRIBUTION WIDTH 13.8 % (11.5-14.0); SEGMENTED NEUTROPHILS % (AUTO) 79.6 % (42-78); TOTAL CELLS COUNTED % (AUTO) 100 %; WHITE BLOOD COUNT 9.1 10^3/uL (4.0-10.5)
[2020-06-22 11:43] LABS: ALBUMIN 3.6 g/dL (3.5-5.0); ALKALINE PHOSPHATASE 149 U/L (38-126); ANION GAP 6 (5-19); ASPARTATE AMINO TRANSFERASE 50 U/L (14-36); BILIRUBIN,DIRECT 0.3 mg/dL (0.0-0.4); BILIRUBIN,TOTAL 0.6 mg/dL (0.2-1.3); BLOOD UREA NITROGEN 9 mg/dL (7-20); CARBON DIOXIDE 24 mmol/L (22-30); CHLORIDE 111 mmol/L (98-107); GLUCOSE 76 mg/dL (75-110); POTASSIUM 4.2 mmol/L (3.6-5.0); TOTAL PROTEIN 6.2 g/dL (6.3-8.2)
[2020-06-22] MEDS ORDERED: LABETALOL HCL INJ 20 MG/4 ML DISP.SYRIN IV ONE ×3 (12:15→18:01)
[2020-06-22] MEDS ORDERED: METOCLOPRAMIDE HCL INJ/PF 10 MG/2 ML SDV IV ONE (12:15)
[2020-06-22] MEDS ORDERED: OXYCODONE-ACETAMINOPHEN 5-325 MG TABLET PO ONE (12:16)
--- NOTE | 2020-06-22 12:22 | ER Document Report ---
ED General - General Chief Complaint: Leg Swelling Stated Complaint: BILATERAL LEG SWELLING Time Seen by Provider: 06/22/20 10:41 Primary Care Provider: MARYLU STODDARD MD [Primary Care Provider] - Follow up as needed Mode of Arrival: Wheelchair TRAVEL OUTSIDE OF THE [place] IN LAST 30 DAYS: No - HPI Notes: Chief complaint: Generalized edema, blood pressure problems History of present illness: 19-year-old 1 para 1, 3 days presenting with massive edema of lower extremities as well as some mild edema of her hands and face. Review of her discharge note shows that she had some elevated blood pressure at the time of discharge and was sent home on labetalol 100 mg twice daily. She took medication last night but not this morning. She denies any headache, dizziness, nausea or vomiting. She is having a lot of perineal pain secondary to second-degree vaginal laceration. She is currently taking only ibuprofen and says that this is not helpful for pain. She is breast-feeding. She has no known allergies. Patient reports no history of diabetes and no history of any prior medical problems preceding her . She is a non-smoker. - Related Data Allergies/Adverse Reactions: No Known Allergies Allergy (Verified 10/06/19 16:02) Past Medical History - General Information source: Patient, Relative, [facility] Records - Social History Smoking Status: Never Smoker Chew tobacco use (# tins/day): No Frequency of alcohol use: None Drug Abuse: None Family History: Reviewed & Not Pertinent Renal/ Medical History: Denies: Hx Peritoneal Dialysis Psychiatric Medical History: Denies: Hx Depression - Immunizations Immunizations up to date: Yes Hx Diphtheria, Pertussis, Tetanus Vaccination: Yes Review of Systems - Review of Systems Notes: Constitutional: Negative for fever. HENT: Negative for sore throat. Eyes: Negative for visual changes. Cardiovascular: Negative for chest pain. Respiratory: Negative for shortness of breath. Gastrointestinal: Negative for abdominal pain, vomiting or diarrhea. Genitourinary: As per HPI. Musculoskeletal: Negative for back pain. Skin: Negative for rash. Neurological: Negative for headaches, weakness or numbness. 10 point ROS negative except as marked above and in HPI. Physical Exam - Vital signs Vitals: Temp Pulse Resp BP Pulse Ox 98.7 F 88 18 161/104 H 99 06/22/20 10:00 06/22/20 10:00 06/22/20 10:00 06/22/20 10:00 06/22/20 10:00 - Notes Notes: GENERAL: Well-developed well-nourished female approximately stated age appearing moderately uncomfortable. SKIN: Good turgor no rashes. HEAD: Normocephalic atraumatic. Mild facial edema. EYES: Mild bilateral periorbital edema. PERRLA. EOMI. Conjunctivae and sclerae clear. EARS: CANALS AND TMS CLEAR. NOSE: CLEAR. MOUTH: Moist mucosa. Good dentition. No stridor or edema. No drooling. NECK: Supple. No masses or thyromegaly. No adenopathy. Carotids 2+ without bruits. No JVD. BACK: Symmetrical without tenderness. CHEST: Respirations unlabored. Breath sounds clear and symmetrical. HEART: Regular rhythm. No murmur gallop or rub. ABDOMEN: Soft nontender without masses, organomegaly or rebound. Bowel sounds normally active. No bruits. GENITALIA: Deferred. EXTREMITIES: 3+ bilateral lower extremity edema. No calf tenderness. Cap refill less than 1.5 seconds. Dorsalis pedis and posterior tibial pulses 3+ and symmetrical. NEUROLOGICAL: GCS 15. Alert and oriented x3. Patient has minimal bilateral ankle clonus 1+. Fluent speech. Cranial nerves II through XII intact. Sensorimotor and cerebellar normal. Normal tone. PSYCHIATRIC: Appropriate affect. Course - Re-evaluation Re-evalutation: 06/22/20 14:21 19-year-old primigravida 3 days presenting with findings consistent with preeclampsia. Patient has 1+ ankle clonus. She is having no headache or dizziness. She does have edema of hands feet and face most prominent in the lower extremity. She has heavy proteinuria. Her creatinine is normal. Transaminases are mildly elevated. Serum urate is 8.1. Platelets normal. Blood pressure initially was 168/105. We have kept her on monitor car operator and I have given her some labetalol IV. Blood pressure currently is 150/86. I have paged PROGRAMS DIRECT[employer] real estate transaction coordinator Dr. Miguelina Gamble to request admission and I am awaiting her callback. 06/22/20 14:47 Dr. Gamble has accepted patient for admission to L&D and will initiate IV magnesium infusion. - Vital Signs Vital signs: Temp Pulse Resp BP Pulse Ox 98.7 F 88 18 161/104 H 99 06/22/20 10:00 06/22/20 10:00 06/22/20 10:00 06/22/20 10:00 06/22/20 12:49 - Laboratory Result Diagrams: 06/22/20 11:06 06/22/20 11:06 Laboratory results interpreted by me: 06/22/20 06/22/20 06/22/20 11:06 11:06 12:01 RBC 3.36 L Hgb 10.4 L Hct 29.9 L Lymph % (Auto) 10.5 L Seg Neutrophils % 79.6 H Chloride 111 H Uric Acid 8.1 H AST 50 H ALT 48 H Alkaline Phosphatase 149 H Total Protein 6.2 L Urine Protein Urine Ketones Urine Blood Urine Urobilinogen Ur Leukocyte Esterase 06/22/20 13:40 RBC Hgb Hct Lymph % (Auto) Seg Neutrophils % Chloride Uric Acid AST ALT Alkaline Phosphatase Total Protein Urine Protein 100 H Urine Ketones TRACE H Urine Blood LARGE H Urine Urobilinogen 4.0 H Ur Leukocyte Esterase MODERATE H Critical Care Note - Critical Care Note Total time excluding time spent on procedures (mins): 35 - IV labetalol Discharge - Discharge Clinical Impression: Preeclampsia Condition: Good Disposition: ADMITTED INPATIENT Admitting Provider: Dr. Miguelina Gamble Unit Admitted: Labor and Delivery Referrals: MARYLU STODDARD MD [Primary Care Provider] - Follow up as needed
[2020-06-22 13:58] LABS: APPEARANCE,URINE SLIGHTLY-CLOUDY; BILIRUBIN,URINE NEGATIVE (NEGATIVE); COLOR,URINE YELLOW; GLUCOSE, URINE NEGATIVE (NEGATIVE); KETONES,URINE TRACE mg/dL (NEGATIVE); LEUKOCYTE ESTERASE,URINE MODERATE (NEGATIVE); NITRITE,URINE NEGATIVE (NEGATIVE); PROTEIN,URINE 100 mg/dL (NEGATIVE); URINE SPECIFIC GRAVITY 1.025
[2020-06-22] MEDS ORDERED: ACETAMINOPHEN WITH CODEINE #3 TABLET PO PRN ×2 (16:46)
[2020-06-22] MEDS ORDERED: DIPHENHYDRAMINE HCL 25 MG CAPSULE PO PRN (16:46)
[2020-06-22] MEDS ORDERED: ZOLPIDEM TARTRATE 5 MG TABLET PO PRN (16:46)
[2020-06-22] MEDS ORDERED: PROMETHAZINE HCL 25 MG TABLET PO PRN (16:46)
[2020-06-22] MEDS ORDERED: ACETAMINOPHEN 650 MG SUPP.RECT PR PRN (16:46)
[2020-06-22] MEDS ORDERED: DIBUCAINE 1% OINTMENT 28 GM TP PRN (16:46)
[2020-06-22] MEDS ORDERED: GLYCERIN/WITCH HAZEL LEAF 1 EACH MED..WIPE TP PRN (16:46)
[2020-06-22] MEDS ORDERED: NA PHOS,M-B/NA PHOS,DI-BA (ADULT) 133 ML ENEMA PR PRN (16:46)
[2020-06-22] MEDS ORDERED: MAGNESIUM HYDROXIDE SUSP 30 ML UDCUP PO PRN (16:46)
[2020-06-22] MEDS ORDERED: PROMETHAZINE HCL 25 MG SUPP.RECT PR PRN (16:46)
[2020-06-22] MEDS ORDERED: PROMETHAZINE HCL INJ 25 MG/1 ML VIAL IV PRN (16:46)
[2020-06-22] MEDS ORDERED: BENZOCAINE/MENTHOL AEROSOL SPRAY 56 ML TOP PRN (16:46)
[2020-06-22] MEDS ORDERED: PSEUDOEPHEDRINE HCL 30 MG TABLET PO PRN (16:46)
[2020-06-22] MEDS ORDERED: MAGNESIUM SULFATE 4 GM/100 ML RTUPB IV ONE ×2 (16:47→17:08)
[2020-06-22] MEDS ORDERED: HYDRALAZINE HCL INJ/PF 20 MG/1 ML SDV IV ONE ×4 (16:55→23:37)
[2020-06-22] MEDS ORDERED: HYDRALAZINE HCL INJ/PF 20 MG/1 ML SDV ONE ×4 (17:08→23:40)
[2020-06-22] MEDS ORDERED: MAGNESIUM SULFATE 20 GM/500 ML RTUINJ IV ONE (17:08)
[2020-06-22] MEDS: MAGNESIUM SULFATE 20 GM/500 ML RTUINJ IV PRN (17:55)
--- NOTE | 2020-06-22 18:14 | Admission Physical ---
Datetime Report Generated by CPN: 06/22/2020 18:13 CURRENT ADMISSION Chief Complaint: Other Chief Complaint Other: sent from ER for severe BP 3 days PP Indication for Induction: Not Applicable Admit Impression : Term, Intrauterine ; Active Labor Admit Impression- Other: post pre-eclampsia Admit Plan: Admit to Unit Admit Plan- Other: start magnesium and IV BP meds ALLERGIES Medication Allergies: No Medication Allergies: No Known Allergies (10/06/2019) Latex: No Latex Allergies OBSTETRICAL HISTORY EDC: 07/01/2020 00:00 : 1 Para: 0 Term: 0 : 0 SAB: 0 IAB: 0 Ectopic: 0 Livin Cesareans: 0 VBACs: 0 Multiple Births: 0 Gestational Diabetes: No Rh Sensitization: No Incompetent Cervix: No HOWIE: No Infertility: No ART Treatment: No Uterine Anomaly: No IUGR: No Hx Previous C/S: No Macrosomia: No Hx Loss/Stillborn: No PIH: No Hx : No Placenta Previa/Abruption: No Depression/PP Depression: No PTL/PROM: No Post Hemorrhage: No Current Procedures: Ultrasound Obstetrical History Comments: G1- Current SEE RECORDS Alcohol: No Marijuana : No Cocaine: No Other Illicit Drugs: No Cigarettes: Never Smoker. [id number] Advised to Stop: No MEDICAL HISTORY Diabetes: No Blood Transfusion: No Pulmonary Disease (Asthma, TB): No Breast Disease: No Hypertension: No Wax Cutter Surgery: No Heart Disease: No Hosp/Surgery: No Autoimmune Disorder: No Anesthetic Complications: No Kidney Disease: No Abnormal Pap Smear: No Neuro/Epilepsy: No Psychiatric Disorders: No Other Medical Diseases: No Hepatitis/Liver Disease: No Significant Family History: No Varicosities/Phlebitis: No Trauma/Violence : No Thyroid Dysfunction: No INFECTIOUS HISTORY Gonorrhea: No Genital Herpes: No Chlamydia: No Tuberculosis: No Syphilis: No Hepatitis: No HIV/AIDS Exposure: No Rash or Viral Illness: No HPV: No PHYSICAL EXAM General: Normal HEENT: Normal Neurologic: Abnormal Thyroid: Deferred Heart: Abnormal Lungs: Normal Breast: Deferred Back: Normal Abdomen: Normal Genitourinary Exam: Deferred Extremities: Abnormal DTRs: Normal Pelvic Type: Adequate Physical Exam Comments: heart RRR with mild systolic murmur lungs CTAB fundus firm at U-2 BLE with 1+ pitting edema except 2+ pitting in feet DTRs 1+/1+ clonus 1 beat on right, 2 beats on left Vital Signs: Reviewed Details Vital Signs: severe range blood pressures VAGINAL EXAM Dilatation: 7 Effacement: 90 Station: 0 MEMBRANES Pooling: Negative Membranes: Ruptured Amniotic Fluid Color: Clear FETUS A EGA: 38.1 Monitoring: External US FHR- Baseline: 130 Variability: Moderate 6-25bpm Accelerations: 15X15 Decelerations: None FHR Category: Category I Estimated Weight (gm): 3400 Presentation: Vertex Admit Comment: with vaginal delivery 3 days ago, underwent , had high blood pressures at end of , now has normal bleeding presented to ER today for edema taking labetalol 100mg bid for BP-did not take today denies MUÑOZ/visual changes/RUQ pain has severe range BPs P: Dr Gamble managing, Magnesium sulfate has been started, has had 1 dose of labetalol in ER, 2 doses of hydralazine; still having severe range BPs-labetalol 320 mg ordered and is being given now. Seizure pctns, nunez catheter PLANS FOR LABOR AND DELIVERY Labor and Delivery: None Pain Management: None Feeding Preference: Breast Benefit of Breast Feed Discussed: Yes Circumcision: Yes INFORMED CONSENT Assignment: Jacqueline Gamble MD Signature: with User ID: [email or web address] : with User ID: [email or web address]
[2020-06-22] MEDS ORDERED: FERROUS SULFATE 325 MG TABLET PO ONE (18:43)
[2020-06-22] MEDS: FERROUS SULFATE 325 MG TABLET PO SCH (18:44)
[2020-06-22] MEDS: DOCUSATE SODIUM 100 MG CAPSULE PO SCH (18:47)
[2020-06-22] MEDS ORDERED: DOCUSATE SODIUM 100 MG CAPSULE ONE (18:47)
[2020-06-22] MEDS ORDERED: AMPICILLIN SOD/SULBACTAM 3 GM VIAL ONE (20:37)
[2020-06-22] MEDS ORDERED: LABETALOL HCL 200 MG TABLET ONE (20:37)
[2020-06-22] MEDS ORDERED: LABETALOL HCL 200 MG TABLET PO SCH (22:00)
[2020-06-22] MEDS: AMPICILLIN SOD/SULBACTAM 3 GM VIAL IV SCH (22:58)
[2020-06-22 23:04] LABS: ABSOLUTE LYMPHOCYTES (AUTO) 0.8 10^3/uL (0.5-4.7); ABSOLUTE MONOCYTES (AUTO) 0.7 10^3/uL (0.1-1.4); ABSOLUTE NEUT (AUTO) 8.4 10^3/uL (1.7-8.2); BASOPHILS % (AUTO) 0.2 % (0-2); EOSINOPHILS % (AUTO) 0.5 % (0-6); HEMATOCRIT 29.5 % (36.0-47.0); HEMOGLOBIN 10.6 g/dL (12.0-15.5); LYMPHOCYTES % (AUTO) 7.8 % (13-45); MEAN CORPUSCULAR HEMOGLOBIN 31.7 pg (27.0-33.4); MEAN CORPUSCULAR HGB CONC 35.8 g/dL (32.0-36.0); MEAN CORPUSCULAR VOLUME 89 fl (80-97); MONOCYTES % (AUTO) 6.8 % (3-13); PLATELET COUNT 281 10^3/uL (150-450); RED BLOOD COUNT 3.34 10^6/uL (3.72-5.28); RED CELL DISTRIBUTION WIDTH 13.5 % (11.5-14.0); SEGMENTED NEUTROPHILS % (AUTO) 84.7 % (42-78); TOTAL CELLS COUNTED % (AUTO) 100 %; WHITE BLOOD COUNT 9.9 10^3/uL (4.0-10.5)
--- NOTE | 2020-06-22 23:32 | RADIOLOGY REPORT (SQ) ---
EXAM DESCRIPTION: [facility]: XR CHEST 1 VIEW CLINICAL HISTORY: 19 years Female; febrile, 3 days pp; COMPARISON: None. FINDINGS: Lungs: Lungs are clear, with no focal infiltrate, pneumothorax, or pleural effusion. Mediastinum: Mediastinum is within normal limits for this positioning. Bones: Bony structures are unremarkable. IMPRESSION: 1. No acute pulmonary findings.
[2020-06-22] MEDS: FAMOTIDINE 20 MG TABLET PO SCH (23:59)
[2020-06-22] MEDS: IBUPROFEN 800 MG TABLET PO SCH (23:59)
[2020-06-23] MEDS ORDERED: ACETAMINOPHEN 1,000 MG/100 ML RTUPB IV ONE (00:01)
[2020-06-23] MEDS ORDERED: ACETAMINOPHEN 1,000 MG/100 ML RTUPB IV PRN (00:07)
[2020-06-23 00:33] LABS: APPEARANCE,URINE CLEAR; BILIRUBIN,URINE NEGATIVE (NEGATIVE); COLOR,URINE YELLOW; GLUCOSE, URINE NEGATIVE (NEGATIVE); KETONES,URINE NEGATIVE (NEGATIVE); LEUKOCYTE ESTERASE,URINE NEGATIVE (NEGATIVE); NITRITE,URINE NEGATIVE (NEGATIVE); PROTEIN,URINE 30 mg/dL (NEGATIVE); URINE SPECIFIC GRAVITY 1.027
--- NOTE | 2020-06-23 01:28 | PDOC CONSULTATION ---
Consultation Consult Date: 06/22/20 Attending physician:: NANETTE ALVES Provider Consulted: ADRIÁN VÁSQUEZ Consult reason:: Fever History of Present Illness Admission Date/PCP: 06/22/20 15:41 MARYLU STODDARD MD History of Present Illness: KAVITA FRAUSTO is a 19 year old female day 4 uncomplicated vaginal delivery except for needing episiotomy presenting to ED complaining of worsening upper and lower extremity edema and facial swelling, in ED she was fo und to have mildly elevated LFTs, proteinuria, hypertension and tachycardia, patient was diagnosed with preeclampsia and was admitted under labor and delivery and was a started on magnesium IV. While in labor and delivery unit patient was noted to have fever and hospitalist was consulted. Patient is stating that before delivery she did have some lower extremity edema but has been worsening since her delivery, she denies any fever or chills but endorses paroxysmal nocturnal dyspnea, denies any sick contact or being exposed to anybody with suspicion of COVID-19, complaining of mild headache, denies any visual changes, chest pain, cough, loss of smell, loss of taste, nausea, vomiti ng, diarrhea, flank pain, or dysuria. Past Medical History Psychiatric Medical History: Denies: Depression Social History Smoking Status: Never Smoker Electronic Cigarette use?: No Family History Family History: Reviewed & Not Pertinent Parental Family History Reviewed: Yes Children Family History Reviewed: Yes Sibling(s) Family History Reviewed.: Yes Medication/Allergy Home Medications: Aun619/Iron Fum/Folic/Docusate [ 19 Tablet] 1 tab PO DAILY 06/18/20 Docusate Sodium [Colace 100 mg Capsule] 100 mg PO BID #60 capsule 06/20/20 Ferrous Sulfate [Feosol 325 mg Tablet] 325 mg PO BID #60 tablet 06/20/20 Ibuprofen [Motrin 800 mg Tablet] 800 mg PO Q8HP PRN #20 tablet 06/20/20 Labetalol HCl [Normodyne 200 mg Tablet] 200 mg PO Q12 06/22/20 Allergies/Adverse Reactions: No Known Allergies Allergy (Verified 10/06/19 16:02) Review of Systems Review of Systems: as per hpi Physical Exam Vital Signs: Temp Pulse Resp BP Pulse Ox 98.7 F 88 18 161/104 H 99 06/22/20 10:00 06/22/20 10:00 06/22/20 10:00 06/22/20 10:00 06/22/20 12:49 Intake & Output 06/21/20 06/22/20 06/23/20 06:59 06:59 06:59 Weight 122.47 kg Results Laboratory Results: 06/22/20 22:48 06/22/20 11:06 06/22/20 06/22/20 06/22/20 11:06 11:06 12:01 WBC 9.1 RBC 3.36 L Hgb 10.4 L Hct 29.9 L MCV 89 MCH 31.1 MCHC 34.9 RDW 13.8 Plt Count 291 Seg Neutrophils % 79.6 H Sodium 141.0 Potassium 4.2 Chloride 111 H Carbon Dioxide 24 Anion Gap 6 BUN 9 Creatinine 0.75 Est GFR ( Amer) > 60 Glucose 76 Lactic Acid Uric Acid 8.1 H Calcium 9.0 Ferritin Total Bilirubin 0.6 AST 50 H Alkaline Phosphatase 149 H C-Reactive Protein Total Protein 6.2 L Albumin 3.6 Urine Color Urine Appearance Urine pH Ur Specific Babcock Urine Protein Urine Glucose (UA) Urine Ketones Urine Blood Urine Nitrite Ur Leukocyte Esterase Urine WBC (Auto) Urine RBC (Auto) 06/22/20 06/22/20 06/22/20 13:40 22:35 22:48 WBC 9.9 RBC 3.34 L Hgb 10.6 L Hct 29.5 L MCV 89 MCH 31.7 MCHC 35.8 RDW 13.5 Plt Count 281 Seg Neutrophils % 84.7 H Sodium Potassium Chloride Carbon Dioxide Anion Gap BUN Creatinine Est GFR ( Amer) Glucose Lactic Acid Uric Acid Calcium Ferritin Total Bilirubin AST Alkaline Phosphatase C-Reactive Protein Total Protein Albumin Urine Color YELLOW YELLOW Urine Appearance SLIGHTLY-CLOUDY CLEAR Urine pH 6.0 7.0 Ur Specific Babcock 1.025 1.027 Urine Protein 100 H 30 H Urine Glucose (UA) NEGATIVE NEGATIVE Urine Ketones TRACE H NEGATIVE Urine Blood LARGE H SMALL H Urine Nitrite NEGATIVE NEGATIVE Ur Leukocyte Esterase MODERATE H NEGATIVE Urine WBC (Auto) 100 2 Urine RBC (Auto) >182 29 06/22/20 06/22/20 22:48 23:28 WBC RBC Hgb Hct MCV MCH MCHC RDW Plt Count Seg Neutrophils % Sodium Potassium Chloride Carbon Dioxide Anion Gap BUN Creatinine Est GFR ( Amer) Glucose Lactic Acid 0.8 Uric Acid Calcium Ferritin 89.00 Total Bilirubin AST Alkaline Phosphatase C-Reactive Protein 63.0 H Total Protein Albumin Urine Color Urine Appearance Urine pH Ur Specific Babcock Urine Protein Urine Glucose (UA) Urine Ketones Urine Blood Urine Nitrite Ur Leukocyte Esterase Urine WBC (Auto) Urine RBC (Auto) 06/22/20 23:28 NT-Pro-B Natriuret Pep 1540 H Impressions: Chest X-Ray 06/22/20 22:24 IMPRESSION: 1. No acute pulmonary findings. Assessment and Plan - Diagnosis (1) Fever, unknown origin Is this a current diagnosis for this admission?: Yes Plan: Possibly due to underlying UTI, this is unlikely this is COVID-19 or pneumonia Patient denies any recent exposure, denies any cough, loss of smell or loss of taste. WBC WNL, chest x-ray no acute changes, SPO2 WNL on RA, ferritin WNL. Elevated d-dimer and CRP, which could be secondary to recent delivery and preeclampsia. Currently on empiric IV antibiotics. PRN Tylenol and cooling measures. Follow-up urine and blood culture. (2) Pre-eclampsia, Is this a current diagnosis for this admission?: Yes Plan: Managed by F[facility] SPECIALIST. (3) Hypertensive urgency Is this a current diagnosis for this admission?: Yes Plan: Likely due to preeclampsia. Continue IV hydralazine. Consider using IV diuretics if not contraindicated. Consider holding beta-blockers until patient is euvolemic. (4) Acute systolic heart failure Is this a current diagnosis for this admission?: Yes Plan: Presenting with lower and upper extremity edema and elevated proBNP. Endorses paroxysmal nocturnal dyspnea. Denies any personal or family history of CAD. Likely due to underlying hypertensive urgency and preeclampsia. Cardiac diet, fluid restrictions, strict in and out, daily weights. Recommend IV diuretics and holding beta-blockers until patient is euvolemic. Consider 2D echo if no improvement. (5) UTI (urinary tract infection) Qualifiers: Urinary tract infection type: acute cystitis Is this a current diagnosis for this admission?: Yes Plan: Continue empiric IV antibiotics. Follow-up urine culture. - Time Time Spent with patient: 25-34 minutes Medications reviewed and adjusted accordingly: Yes Anticipated Discharge Disposition: Home, Self Care Anticipated Discharge Timeframe: within 48 hours
[2020-06-23] MEDS: AMPICILLIN SODIUM/SULBACTAM NA 3 GM in NORMAL SALINE 100 ML IV SCH ×2 (03:16→15:28)
[2020-06-23] MEDS ORDERED: MAGNESIUM SULFATE 20 GM/500 ML RTUINJ IV ONE (04:13)
[2020-06-23] MEDS: MAGNESIUM SULFATE 20 GM/500 ML RTUINJ IV PRN (04:18)
[2020-06-23] MEDS ORDERED: HYDRALAZINE HCL INJ/PF 20 MG/1 ML SDV IV ONE (04:55)
[2020-06-23] MEDS ORDERED: HYDRALAZINE HCL INJ/PF 20 MG/1 ML SDV ONE (05:13)
[2020-06-23] MEDS ORDERED: LABETALOL HCL 200 MG TABLET PO ONE (06:50)
[2020-06-23] MEDS ORDERED: LABETALOL HCL 200 MG TABLET ONE ×2 (07:07→07:13)
[2020-06-23] MEDS ORDERED: RINGERS SOLUTION,LACTATED 1,000 ML IV PRN (07:10)
[2020-06-23] MEDS ORDERED: IBUPROFEN 800 MG TABLET ONE (07:13)
[2020-06-23] MEDS: IBUPROFEN 800 MG TABLET PO SCH ×3 (07:16→22:39)
[2020-06-23] MEDS ORDERED: FAMOTIDINE 20 MG TABLET ONE (08:36)
[2020-06-23] MEDS ORDERED: FERROUS SULFATE 325 MG TABLET PO ONE (08:36)
[2020-06-23] MEDS ORDERED: SENNOSIDES/DOCUSATE 8.6-50 MG 1 EACH TABLET ONE (08:36)
[2020-06-23] MEDS ORDERED: DOCUSATE SODIUM 100 MG CAPSULE ONE (08:36)
[2020-06-23] MEDS ORDERED: PRENATAL VITAMIN W DHA CAPSULE PO ONE (08:36)
[2020-06-23] MEDS ORDERED: PRENATAL VITAMIN W DHA CAPSULE PO SCH (10:00)
[2020-06-23] MEDS ORDERED: SENNOSIDES/DOCUSATE 8.6-50 MG 1 EACH TABLET PO SCH (10:00)
[2020-06-23] MEDS ORDERED: GLYCERIN/WITCH HAZEL LEAF 1 EACH MED..WIPE TP PRN (10:12)
[2020-06-23] MEDS ORDERED: PROMETHAZINE HCL INJ 25 MG/1 ML VIAL IV PRN (10:12)
[2020-06-23] MEDS ORDERED: NA PHOS,M-B/NA PHOS,DI-BA (ADULT) 133 ML ENEMA PR PRN (10:12)
[2020-06-23] MEDS ORDERED: BENZOCAINE/MENTHOL AEROSOL SPRAY 56 ML TOP PRN (10:12)
[2020-06-23] MEDS ORDERED: PROMETHAZINE HCL 25 MG SUPP.RECT PR PRN (10:12)
[2020-06-23] MEDS ORDERED: ZOLPIDEM TARTRATE 5 MG TABLET PO PRN (10:12)
[2020-06-23] MEDS ORDERED: ACETAMINOPHEN WITH CODEINE #3 TABLET PO PRN ×2 (10:12)
[2020-06-23] MEDS ORDERED: MAGNESIUM HYDROXIDE SUSP 30 ML UDCUP PO PRN (10:12)
[2020-06-23] MEDS ORDERED: PROMETHAZINE HCL 25 MG TABLET PO PRN (10:12)
[2020-06-23] MEDS ORDERED: ACETAMINOPHEN 650 MG SUPP.RECT PR PRN (10:12)
[2020-06-23] MEDS ORDERED: PSEUDOEPHEDRINE HCL 30 MG TABLET PO PRN (10:12)
[2020-06-23] MEDS ORDERED: DIPHENHYDRAMINE HCL 25 MG CAPSULE PO PRN (10:12)
[2020-06-23] MEDS ORDERED: DIBUCAINE 1% OINTMENT 28 GM TP PRN (10:12)
[2020-06-23] MEDS: FAMOTIDINE 20 MG TABLET PO SCH ×2 (10:18→22:39)
[2020-06-23] MEDS: FERROUS SULFATE 325 MG TABLET PO SCH ×2 (10:18→17:27)
[2020-06-23] MEDS: DOCUSATE SODIUM 100 MG CAPSULE PO SCH ×2 (10:18→17:27)
--- NOTE | 2020-06-23 10:33 | L&D Progress Notes ---
PROGRESS NOTES Datetime Report Generated by CPN: 06/23/2020 10:32 PROGRESS NOTE Impression: Reassuring Heart Rate Procedures: Intrauterine Pressure Catheter; Scalp Electrode; Epidural Placement Plan: Continue Present Management; Anticipate Vaginal Delivery Plan Other: O2 applied, position changes encouraged Vital Signs : Reviewed; Within Normal Limits Comment: The pt is starting to diurese now. We will avoid more IV fluids by stopping the Mg today. Will move to the floor and treat bp with labetolol. VAGINAL EXAM Dilatation: 7 Effacement: 90 Station: 0 LAST VAGINAL EXAM-NURSING Nursing Exam Dilitation: 10.0 Nursing Exam Effacement: 100 Nursing Exam Station: 1 Nursing Exam Contractions: MVUs 155; resting tone elevated secondary to amnioinfusion MEMBRANES Pooling: Negative Membranes: Ruptured Amniotic Fluid Color: Clear FETUS A FHR - Baseline: 125 Monitoring: Internal Scalp Electrode Variability: Moderate 6-25bpm Accelerations: 15X15 Decelerations: Variable FHR Comments: with contractions, spontaneously resolve : 38.1 Estimated Weight (gm): 3400 Presentation: Vertex SIGNATURE SIGNATURE: [id number];[id number];[id number];29,[id number] Assignment: Monica Garcia MD Signature: with User ID: Murphy : with User ID: Murphy
--- NOTE | 2020-06-23 13:54 | XCELERA REPORT ---
[address] [address] Transthoracic Echocardiogram Report Name: KAVITA FRAUSTO Age: 19 yrs Gender: Female : 2000 Patient Status: Inpatient Patient Location: [place] [address]^E Study Date: 06/23/2020 11:01 AM Height: 69 in Weight: 270 lb BSA: 2.3 m2 Procedure: A complete two-dimensional transthoracic echocardiogram was performed (2D, M-mode, spectral and color flow Doppler). The study was technically good with many images being of high quality. 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 The left ventricular ejection fraction is normal. The Ejection Fraction estimate is 65-70%. Doppler measurements suggest normal left ventricular diastolic function. The left ventricular wall motion is normal. Mild to moderate MR, Moderate TR, trace PI. Moderately elevated pulmonary pressueres estimated between 51 and 56 mmHg. Minimal, hemodynamically insignificant, circumferential pericardial effusion. No prior studies for comparison. MMode/2D Measurements & Calculations RVDd: 3.1 cm LVIDd: 5.1 cm FS: 37.6 % Ao root diam: 2.5 cm IVSd: 1.5 cm LVIDs: 3.2 cm EDV(Teich): 126.5 ml Ao root area: 4.9 cm2 LVPWd: 1.3 cm ESV(Teich): 41.3 ml LA dimension: 3.6 cm EF(Teich): 67.3 % Doppler Measurements & Calculations MV E max grya: MV P1/2t max gray: Ao V2 max: LV V1 max P.2 cm/sec 139.2 cm/sec 205.5 cm/sec 12.9 mmHg MV A max gray: MV P1/2t: 78.4 msec Ao max PG: LV V1 max: 81.9 cm/sec MVA(P1/2t): 2.8 cm2 16.9 mmHg 179.4 cm/sec MV E/A: 1.7 MV dec slope: 520.1 cm/sec2 MV dec time: 0.26 sec PA V2 max: TR max gray: MV P1/2t-pr_phl: 116.0 cm/sec 339.3 cm/sec 78.4 msec PA max P.4 mmHgTR max P.1 mmHg Left Ventricle There is mild concentric left ventricular hypertrophy. The left ventricular ejection fraction is normal. The Ejection Fraction estimate is 65-70%. Doppler measurements suggest normal left ventricular diastolic function. The left ventricular wall motion is normal. Right Ventricle The right ventricle is normal in size, thickness and function. There is mild right ventricular hypertrophy. The right ventricular systolic function is normal. Atria The right atrium is normal. The left atrial size is normal. There is no Doppler evidence for an interatrial shunt. Mitral Valve The mitral valve is normal in structure and function. There is no evidence of mitral valve prolapse. There is no mitral valve stenosis. There is a mild to moderate amount of mitral regurgitation. Aortic Valve The aortic valve is normal in structure and functions normally. There is no aortic valve stenosis. No aortic regurgitation is present. Tricuspid Valve The tricuspid is normal in structure and function. There is a moderate amount of tricuspid regurgitation. There is moderate pulmonary hypertension by echo. Pulmonic Valve The pulmonic valve is normal in structure and function. There is a trace or physiologic amount of pulmonic regurgitation. Great Vessels The aortic root is normal size. The inferior vena cava appeared normal and decreased > 50% with respiration (RAP 5-10 mmHg). Effusions Minimal pericardial effusion. There are no echocardiographic or Doppler indications for cardiac tamponade. There is no pleural effusion. : JACEK BERGERON Antonio
[2020-06-23] MEDS ORDERED: LABETALOL HCL 200 MG TABLET PO SCH (14:00)
[2020-06-23] MEDS: AMPICILLIN SOD/SULBACTAM 3 GM VIAL IV SCH (15:28)
--- NOTE | 2020-06-23 18:35 | Progress Note ---
Provider Note Provider Note: Evaluated patient this morning. Patient surgically doing much better seems. She feels better in terms of her breathing. She also has not been spiking any fevers all morning and all day. She has been treated for preeclampsia which is being managed by [facility] provider. Checks x-ray showed some pulmonary edema and mild cardiomegaly. Hence I obtained an echocardiogram which shows normal left ventricular systolic and diastolic function but does show moderate tricuspid regurgitation secondary to moderate pulmonary hypertension. Her pulmonary hypertension is likely arterial given normal left heart function. Fever-continue to treat for urinary tract infection. Follow-up urine culture. COVID is negative. Preeclampsia could cause pulmonary hypertension-management as per [facility] provider. D-dimer also likely high in setting of recent and delivery However, given moderate PAH, recent , and significantly elevated d- dimer, it is beneficial to rule out PE so we will check a CTA chest. Have discussed this with Dr. Garcia. I will sign off at this point. Can reconsult as needed if CTA chest comes back positive for PE.
--- NOTE | 2020-06-23 22:01 | RADIOLOGY REPORT (SQ) ---
CT ANGIOGRAM CHEST WITH IV CONTRAST: 06/23/2020 8:57 PM CDT HISTORY: 19-year old patient with concern for pulmonary artery hypertension. TECHNIQUE: Postcontrast CT through the chest was performed per protocol for CT angiography. 3D Multiplanar reformations were performed at the workstation. Reconstructed sagittal and coronal images were also obtained through the chest. This exam was performed according to our departmental dose-optimization program, which includes automated exposure control, adjustment of the mA and/or KV according to the patient's size and/or use of iterative reconstruction technique. COMPARISON: None available FINDINGS: The heart size is enlarged. No large pericardial effusion is seen. There are mildly prominent bilateral axillary lymph nodes. No suspicious supraclavicular lymph nodes are seen. There are right hilar, prevascular and pretracheal lymph nodes measuring up to 6 to 7 mm in short axis dimension. The thoracic aorta is within normal limits of size. The distal segmental pulmonary arteries are not well visualized. No obvious focal filling defects are seen within the pulmonary arteries. The main pulmonary artery is enlarged and measures at least 3.1 cm in transverse dimension. Minimal interlobular septal thickening is seen. The thyroid gland is unremarkable. The central tracheobronchial tree is patent. There are bibasilar groundglass airspace opacities present. No discrete pleural effusion is seen. There is no evidence of a pneumothorax. The bones demonstrate no suspicious lytic or blastic lesion. The visualized portions of the upper abdomen appear grossly unremarkable. IMPRESSION: There are bibasilar groundglass airspace opacities which may reflect developing infection, less likely edema. No filling defect is seen to suggest a pulmonary artery embolism. There are mildly prominent bilateral axillary lymph nodes which could be reactive in nature. Be seen with sarcoid, systemic infection, or other etiologies. The main pulmonary artery is enlarged, which can be seen with pulmonary hypertension.
[2020-06-23] MEDS: LABETALOL HCL 200 MG TABLET PO SCH (22:40)
[2020-06-24] MEDS: IBUPROFEN 800 MG TABLET PO SCH ×3 (06:09→19:41)
[2020-06-24] MEDS: PRENATAL VITAMIN W DHA CAPSULE PO SCH (09:50)
[2020-06-24] MEDS: SENNOSIDES/DOCUSATE 8.6-50 MG 1 EACH TABLET PO SCH (09:50)
[2020-06-24] MEDS: LABETALOL HCL 200 MG TABLET PO SCH ×2 (09:50→21:28)
[2020-06-24] MEDS: FERROUS SULFATE 325 MG TABLET PO SCH ×2 (09:50→18:31)
[2020-06-24] MEDS: FAMOTIDINE 20 MG TABLET PO SCH ×2 (09:50→21:28)
[2020-06-24] MEDS: DOCUSATE SODIUM 100 MG CAPSULE PO SCH ×2 (09:54→18:31)
[2020-06-24] MEDS: HYDRALAZINE HCL INJ/PF 20 MG/1 ML SDV IV PRN ×2 (11:38→16:19)
--- NOTE | 2020-06-24 12:31 | PDOC PROGRESS REPORT ---
Subjective Progress Note for:: 06/24/20 Subjective:: She is still having high blood pressures. Reason For Visit: PREECLAMPSIA Physical Exam - Physical Exam Vital Signs: Temp Pulse Resp BP Pulse Ox 97.8 F 65 17 169/99 H 99 06/24/20 11:27 06/24/20 11:27 06/24/20 11:27 06/24/20 11:27 06/24/20 11:27 Intake & Output 06/23/20 06/24/20 06/25/20 06:59 06:59 06:59 Intake Total 600 1500 Output Total 1400 Balance 600 100 Weight 122.47 kg General appearance: PRESENT: no acute distress, well-developed, well-nourished Head exam: PRESENT: atraumatic, normocephalic Cardiovascular exam: PRESENT: RRR. ABSENT: diastolic murmur, rubs, systolic murmur Pulses: PRESENT: normal dorsalis pedis pul, +2 pedal pulses bilateral Vascular exam: PRESENT: normal capillary refill Result Laboratory Results: 06/22/20 22:48 06/22/20 11:06 06/22/20 23:28 NT-Pro-B Natriuret Pep 1540 H Impressions: Chest X-Ray 06/22/20 22:24 IMPRESSION: 1. No acute pulmonary findings. Chest/Abdomen CTA 06/23/20 00:00 IMPRESSION: There are bibasilar groundglass airspace opacities which may reflect developing infection, less likely edema. No filling defect is seen to suggest a pulmonary artery embolism. There are mildly prominent bilateral axillary lymph nodes which could be reactive in nature. Be seen with sarcoid, systemic infection, or other etiologies. The main pulmonary artery is enlarged, which can be seen with pulmonary hypertension. Assessment & Plan - Diagnosis (1) Pre-eclampsia, Is this a current diagnosis for this admission?: Yes - Time Time Spent with patient: 15-24 minutes
[2020-06-24] MEDS: NIFEDIPINE 30 MG TAB.ER.24 PO SCH (12:35)
[2020-06-24] MEDS: CHLORTHALIDONE 25 MG TABLET PO SCH (13:35)
[2020-06-25] MEDS: HYDRALAZINE HCL INJ/PF 20 MG/1 ML SDV IV PRN (00:59)
[2020-06-25] MEDS ORDERED: HYDRALAZINE HCL INJ/PF 20 MG/1 ML SDV IV PRN (04:30)
[2020-06-25] MEDS: IBUPROFEN 800 MG TABLET PO SCH (05:11)
[2020-06-25 09:10] VITALS: BP 141/84
[2020-06-25] MEDS: FERROUS SULFATE 325 MG TABLET PO SCH (09:25)
[2020-06-25] MEDS: DOCUSATE SODIUM 100 MG CAPSULE PO SCH (09:25)
[2020-06-25] MEDS: LABETALOL HCL 200 MG TABLET PO SCH (09:26)
[2020-06-25] MEDS: SENNOSIDES/DOCUSATE 8.6-50 MG 1 EACH TABLET PO SCH (09:26)
[2020-06-25] MEDS: PRENATAL VITAMIN W DHA CAPSULE PO SCH (09:26)
[2020-06-25] MEDS: NIFEDIPINE 30 MG TAB.ER.24 PO SCH (09:26)
[2020-06-25] MEDS: FAMOTIDINE 20 MG TABLET PO SCH (09:26)
[2020-06-25] MEDS: CHLORTHALIDONE 25 MG TABLET PO SCH (09:26)
--- NOTE | 2020-06-25 10:09 | PDOC DISCHARGE SUMMARY ---
Impression - Admit/DC Date/PCP Admission Date/Primary Care Provider: 06/22/20 15:41 MARYLU STODDARD MD Discharge Date: 06/25/20 - Discharge Diagnosis (1) Pulmonary hypertension Is this a current diagnosis for this admission?: Yes (2) Hypertensive urgency Is this a current diagnosis for this admission?: Yes (3) Pre-eclampsia, Is this a current diagnosis for this admission?: Yes (4) UTI (urinary tract infection) Is this a current diagnosis for this admission?: Yes - Assessment Summary: patient has been admitted for several days for post pre-eclampsia and severe range blood pressures. She has had full workup with hospitalist including an echocardiogram and CTA to rule out embolism. The CTA did show some mild pulmonary hypertension. This AM the patient indicates that she feels much better and would like to be discharged home. In light of her normalizing bps and her workup negative with exception of the above mild findings I am inclined to allow discharge with close follow up. - Additional Information Resuscitation Status: Full Code Discharge Diet: As Tolerated, Cardiac Discharge Activity: Balance Activity w/Rest, No Lifting Over 10 Pounds, No Lifting/Push/Pulling, Pelvic Rest, Walk Frequently Referrals: MARYLU STODDARD MD [Primary Care Provider] - Follow up as needed Prescriptions: Chlorthalidone [Hygroton 25 mg Tablet] 25 mg PO DAILY #30 tablet Ibuprofen [Motrin 800 mg Tablet] 800 mg PO Q8 #30 tablet Labetalol HCl [Normodyne 200 mg Tablet] 200 mg PO Q12 #60 tablet Nifedipine [Procardia XL 30 mg Tablet] 30 mg PO DAILY #30 tab.er.24 Home Medications: Den585/Iron Fum/Folic/Docusate [ 19 Tablet] 1 tab PO DAILY 06/18/20 Docusate Sodium [Colace 100 mg Capsule] 100 mg PO BID #60 capsule 06/20/20 Ferrous Sulfate [Feosol 325 mg Tablet] 325 mg PO BID #60 tablet 06/20/20 Ibuprofen [Motrin 800 mg Tablet] 800 mg PO Q8HP PRN #20 tablet 06/20/20 Labetalol HCl [Normodyne 200 mg Tablet] 200 mg PO Q12 06/22/20 Chlorthalidone [Hygroton 25 mg Tablet] 25 mg PO DAILY #30 tablet 06/25/20 Ibuprofen [Motrin 800 mg Tablet] 800 mg PO Q8 #30 tablet 06/25/20 Labetalol HCl [Normodyne 200 mg Tablet] 200 mg PO Q12 #60 tablet 06/25/20 Nifedipine [Procardia XL 30 mg Tablet] 30 mg PO DAILY #30 tab.er.24 06/25/20 History of Present Illiness History of Present Illness: KAVITA FRAUSTO is a 19 year old female Physical Exam - Physical Exam Vital Signs: Temp Pulse Resp BP Pulse Ox 97.8 F 78 20 141/84 H 100 06/25/20 08:00 06/25/20 08:00 06/25/20 08:00 06/25/20 08:00 06/25/20 08:00 Intake & Output 06/24/20 06/25/20 06/26/20 06:59 06:59 06:59 Intake Total 1500 3340 Output Total 1400 5900 Balance 100 -2560 Weight 117.2 kg Results Laboratory Results: WBC 9.9 10^3/uL (4.0-10.5) 06/22/20 22:48 RBC 3.34 10^6/uL (3.72-5.28) L 06/22/20 22:48 Hgb 10.6 g/dL (12.0-15.5) L 06/22/20 22:48 Hct 29.5 % (36.0-47.0) L 06/22/20 22:48 MCV 89 fl (80-97) 06/22/20 22:48 MCH 31.7 pg (27.0-33.4) 06/22/20 22:48 MCHC 35.8 g/dL (32.0-36.0) 06/22/20 22:48 RDW 13.5 % (11.5-14.0) 06/22/20 22:48 Plt Count 281 10^3/uL (150-450) 06/22/20 22:48 Lymph % (Auto) 7.8 % (13-45) L 06/22/20 22:48 [place] % (Auto) 6.8 % (3-13) 06/22/20 22:48 Eos % (Auto) 0.5 % (0-6) 06/22/20 22:48 Baso % (Auto) 0.2 % (0-2) 06/22/20 22:48 Absolute Neuts (auto) 8.4 10^3/uL (1.7-8.2) H 06/22/20 22:48 Absolute Lymphs (auto) 0.8 10^3/uL (0.5-4.7) 06/22/20 22:48 Absolute Monos (auto) 0.7 10^3/uL (0.1-1.4) 06/22/20 22:48 Absolute Eos (auto) 0.0 10^3/uL (0.0-0.6) 06/22/20 22:48 Absolute Basos (auto) 0.0 10^3/uL (0.0-0.2) 06/22/20 22:48 Seg Neutrophils % 84.7 % (42-78) H 06/22/20 22:48 D-Dimer 3.49 ug/mL (0.00-0.50) H 06/22/20 23:28 Sodium 141.0 mmol/L (137-145) 06/22/20 11:06 Potassium 4.2 mmol/L (3.6-5.0) 06/22/20 11:06 Chloride 111 mmol/L (98-107) H 06/22/20 11:06 Carbon Dioxide 24 mmol/L (22-30) 06/22/20 11:06 Anion Gap 6 (5-19) 06/22/20 11:06 BUN 9 mg/dL (7-20) 06/22/20 11:06 Creatinine 0.75 mg/dL (0.52-1.25) 06/22/20 11:06 Est GFR ( Amer) > 60 (>60) 06/22/20 11:06 Est GFR (MDRD) Non-Af > 60 (>60) 06/22/20 11:06 Glucose 76 mg/dL (75-110) 06/22/20 11:06 Lactic Acid 0.8 mmol/L (0.7-2.1) 06/22/20 22:48 Uric Acid 8.1 mg/dL (2.5-6.2) H 06/22/20 12:01 Calcium 9.0 mg/dL (8.4-10.2) 06/22/20 11:06 Ferritin 89.00 ng/mL (6.2-137.0) 06/22/20 23:28 Total Bilirubin 0.6 mg/dL (0.2-1.3) 06/22/20 11:06 Direct Bilirubin 0.3 mg/dL (0.0-0.4) 06/22/20 11:06 Neonat Total Bilirubin Not Reportable 06/22/20 11:06 Neonat Direct Bilirubin Not Reportable 06/22/20 11:06 Neonat Indirect Bili Not Reportable 06/22/20 11:06 AST 50 U/L (14-36) H 06/22/20 11:06 ALT 48 U/L (<35) H 06/22/20 11:06 Alkaline Phosphatase 149 U/L (38-126) H 06/22/20 11:06 C-Reactive Protein 63.0 mg/L (<10.0) H 06/22/20 23:28 NT-Pro-B Natriuret Pep 1540 pg/mL (<125) H 06/22/20 23:28 Total Protein 6.2 g/dL (6.3-8.2) L 06/22/20 11:06 Albumin 3.6 g/dL (3.5-5.0) 06/22/20 11:06 Urine Color YELLOW 06/22/20 22:35 Urine Appearance CLEAR 06/22/20 22:35 Urine pH 7.0 (5.0-9.0) 06/22/20 22:35 Ur Specific [place] 1.027 06/22/20 22:35 Urine Protein 30 mg/dL (NEGATIVE) H 06/22/20 22:35 Urine Glucose (UA) NEGATIVE mg/dL (NEGATIVE) 06/22/20 22:35 Urine Ketones NEGATIVE mg/dL (NEGATIVE) 06/22/20 22:35 Urine Blood SMALL (NEGATIVE) H 06/22/20 22:35 Urine Nitrite NEGATIVE (NEGATIVE) 06/22/20 22:35 Urine Bilirubin NEGATIVE (NEGATIVE) 06/22/20 22:35 Urine Urobilinogen 4.0 mg/dL (<2.0) H 06/22/20 22:35 Ur Leukocyte Esterase NEGATIVE (NEGATIVE) 06/22/20 22:35 Urine WBC (Auto) 2 /HPF 06/22/20 22:35 Urine RBC (Auto) 29 /HPF 06/22/20 22:35 U Hyaline Cast (Auto) 1 /LPF 06/22/20 22:35 Urine WBC Clumps FEW /HPF 06/22/20 13:40 Urine Mucus (Auto) OCC /LPF 06/22/20 22:35 Urine Ascorbic Acid NEGATIVE (NEGATIVE) 06/22/20 22:35 SARS-CoV-2 (PCR) NEGATIVE (NEGATIVE) 06/23/20 03:11 06/22/20 23:28 NT-Pro-B Natriuret Pep 1540 H Impressions: Chest X-Ray 06/22/20 22:24 IMPRESSION: 1. No acute pulmonary findings. Chest/Abdomen CTA 06/23/20 00:00 IMPRESSION: There are bibasilar groundglass airspace opacities which may reflect developing infection, less likely edema. No filling defect is seen to suggest a pulmonary artery embolism. There are mildly prominent bilateral axillary lymph nodes which could be reactive in nature. Be seen with sarcoid, systemic infection, or other etiologies. The main pulmonary artery is enlarged, which can be seen with pulmonary hypertension. Stroke Is this a Stroke Patient?: No Acute Heart Failure - Is this a Heart Failure Patient?: No
== END 2020-06-25 12:33 | disposition home or self-care (01) | DRG 776 ==
LOC: ER 09:55 → EH 15:41 → LR 16:57 → UNDODISIN 20:28 → 2S 06-23 14:16
PROVIDERS: ADMIT Student in an Organized Health Care Education/Training Program; ATTEND Student in an Organized Health Care Education/Training Program
DX: O14.15 Severe pre-eclampsia, complicating the puerperium (principal); O86.20 Urinary tract infection following delivery, unspecified; I16.0 Hypertensive urgency; I10 Essential (primary) hypertension; I27.20 Pulmonary hypertension, unspecified; Z20.828 Contact with and (suspected) exposure to other viral communicable diseases
CPT/HCPCS: 36415; 71045; 71275; 80053; 81001; 82728; 83605; 83880; 84550; 85025; 85379; 86140; 87040; 87086; 87635; 93306; 96374; 96375; 99291; C9803; J0131; J0295; J0360; J2765; J3475; J3490; J7050